=== PATIENT | male | born 1965 | race Caucasian/White ===

== ENCOUNTER 2020-05-02 08:36 | Outpatient (CLI) | payer BC, SELFPAY ==
--- NOTE | 2020-05-02 11:00 | NEURO_ITS ---
Patient Number: [id number] Impression: # Complains of numbness of hands. # Bilateral Carpal Tunnel Syndrome, right more than left. # Subtle left ulnar neuropathy across the elbow. # Normal needle/EMG exam. Nerve Conduction Studies Anti Sensory Summary Table Stim Site NR Peak (ms) P-T Amp (?V) Site1 Site2 Delta-P (ms) Dist (cm) Renny (m/s) Left Median Anti Sensory (2-3nd Digit) Wrist 5.1 19.5 Wrist 2-3nd Digit 5.1 14.0 27 Wrist 5.1 14.4 Wrist 2-3nd Digit 5.1 14.0 27 Right Median Anti Sensory (2-3nd Digit) Wrist 5.1 10.9 Wrist 2-3nd Digit 5.1 14.0 27 Wrist 6.9 46.8 Wrist 2-3nd Digit 5.1 14.0 27 Left Radial Anti Sensory (Base 1st Digit) Wrist 1.8 21.9 Wrist Base 1st Digit 1.8 0.0 Right Radial Anti Sensory (Base 1st Digit) Wrist 2.0 12.7 Wrist Base 1st Digit 2.0 0.0 Left Ulnar Anti Sensory (5th Digit) Wrist 2.7 59.3 Wrist 5th Digit 2.7 14.0 52 Right Ulnar Anti Sensory (5th Digit) Wrist 2.8 12.0 Wrist 5th Digit 2.8 14.0 50 Motor Summary Table Stim Site NR Onset (ms) O-P Amp (mV) Site1 Site2 Delta-0 (ms) Dist (cm) Renny (m/s) Left Median Motor (Abd Poll Brev) Wrist 4.4 1.7 Elbow Wrist 5.3 30.0 57 Elbow 9.7 5.0 Right Median Motor (Abd Poll Brev) Wrist 5.3 1.8 Elbow Wrist 5.2 30.0 58 Elbow 10.5 1.8 Left Ulnar Motor (Abd Dig Minimi) Wrist 3.0 7.3 A Elbow Wrist 5.6 29.0 52 A Elbow 8.6 5.6 B Elbow Wrist 4.2 23.0 55 B Elbow 7.2 5.6 Right Ulnar Motor (Abd Dig Minimi) Wrist 2.8 6.4 A Elbow Wrist 5.5 31.0 56 A Elbow 8.3 5.5 F Wave Studies NR F-Lat (ms) L-R F-Lat (ms) Left Median (Mrkrs) (Abd Poll Brev) 30.73 0.53 Right Median (Mrkrs) (Abd Poll Brev) 31.26 0.53 Left Ulnar (Mrkrs) (Abd Dig Min) 29.89 0.15 Right Ulnar (Mrkrs) (Abd Dig Min) 29.74 0.15 EMG Side Muscle Nerve Root Ins Act Fibs Amp Dur Recrt Comment Right 1stDorInt Ulnar C8-T1 Nml Nml Nml Nml Nml Right Ext Indicis Radial (Post Int) C7-8 Nml Nml Nml Nml Nml Right Ext Digitorum Radial (Post Int) C7-8 Nml Nml Nml Nml Nml Right BrachioRad Radial C5-6 Nml Nml Nml Nml Nml Right PronatorTeres Median C6-7 Nml Nml Nml Nml Nml Right Abd Poll Brev Median C8-T1 Nml Nml Nml Nml Nml Left 1stDorInt Ulnar C8-T1 Nml Nml Nml Nml Nml Left Ext Indicis Radial (Post Int) C7-8 Nml Nml Nml Nml Nml Left Ext Digitorum Radial (Post Int) C7-8 Nml Nml Nml Nml Nml Left BrachioRad Radial C5-6 Nml Nml Nml Nml Nml Left PronatorTeres Median C6-7 Nml Nml Nml Nml Nml Left Abd Poll Brev Median C8-T1 Nml Nml Nml Nml Nml Right ABD Dig Min Ulnar C8-T1 Nml Nml Nml Nml Nml Left ABD Dig Min Ulnar C8-T1 Nml Nml Nml Nml Nml MTDD
== END 2020-05-02 08:37 | disposition home or self-care (01) ==
PROVIDERS: PCP Internal Medicine; Visit Provider Internal Medicine
DX: R20.2 Paresthesia of skin (principal); G56.03 Carpal tunnel syndrome, bilateral upper limbs; G56.22 Lesion of ulnar nerve, left upper limb
CPT/HCPCS: 95886; 95911

== ENCOUNTER → 2021-02-18 16:27 | Outpatient (CLI) | payer BC, SELFPAY ==
--- NOTE | ~2021-02-18 | MR_ITS ---
EXAMINATION: MR knee RT wo con DATE: 02/18/2021 18:36 INDICATION: Right knee pain. TECHNIQUE: Magnetic resonance imaging (MRI) of the right knee was performed without intravenous contr ast. Sequences included axial PD-weighted FS FSE, coronal PD-weighted FSE and PD-weighted FS FSE, sag ittal PD-weighted FSE, and sagittal T2-weighted FS FSE. COMPARISON: None. FINDINGS: Medial compartment: There is a complex tear body and posterior horn of medial meniscus. There is full-thickness cartilage loss of tibial condyle involving the anterior, central, and medial articular surface with cortical r emodeling and mild subchondral edema-like marrow signal intensity. There is full-thickness cartilage loss of femoral condyle involving the central and medial articular surface with cortical remodeling a nd mild subchondral edema-like marrow signal intensity. Osteophytes are noted. Lateral compartment: Lateral meniscus is normal. There is cartilage surface irregularity of tibial condyle and femoral con dyle. Osteophytes are noted. Patellofemoral compartment: There is full-thickness cartilage loss of patellar medial facet and median ridge. There is deep parti al-thickness cartilage loss of patellar lateral facet with mild subchondral edema-like marrow signal intensity. There is full-thickness cartilage loss of central and medial trochlea with mild subchondra l edema-like marrow signal intensity. Osteophytes are noted. Ligaments and tendons: The anterior and posterior cruciate ligaments are normal. There are changes of prior sprains of media l collateral ligament and fibular collateral ligament characterized by thickening and increased signa l intensity proximally. There is mild patellar tendinopathy. Fluid: There is a moderate-sized knee joint effusion. There is mild prepatellar and superficial infrapatella r bursitis. IMPRESSION: 1. Severe chondrosis of medial and patellofemoral compartments and mild chondrosis of lateral compart ment. 2. Tear of medial meniscus. 3. Moderate-sized knee joint effusion. Reviewed, dictated and finalized at location A. IMPRESSION: 1. Severe chondrosis of medial and patellofemoral compartments and mild chondro sis of lateral compartment. 2. Tear of medial meniscus. 3. Moderate-sized knee joint effusion.
== END ==
PROVIDERS: PCP Internal Medicine; Visit Provider Orthopaedic Surgery
DX: M17.11 Unilateral primary osteoarthritis, right knee (principal); S83.241A Other tear of medial meniscus, current injury, right knee, initial encounter; X58.XXXA Exposure to other specified factors, initial encounter; M25.461 Effusion, right knee
CPT/HCPCS: 73721

== ENCOUNTER 2021-04-09 13:42 | Outpatient (CLI) | payer BC, SELFPAY ==
--- NOTE | 2021-04-09 14:44 | ECG_ITS ---
Measurements Intervals [place] Rate: 61 P: 19 UT: 153 QRS: -27 QRSD: 110 T: 91 QT: 404 QTc: 410 Interpretive Statements SINUS RHYTHM POOR R WAVE PROGRESSION, ANTERIOR LEADS BORDERLINE ST-T WAVE ABNORMALITY- HIGH LATERAL LEADS BASELINE ARTIFACT- I, III, AVR, AVL, AVF BORDERLINE ECG Electronically Signed On 04-09-2021 15:53:38 CDT by Damian Martinez D.O.
[2021-04-09 15:20] LABS: Basophils Percent Auto 0.5 % (0.2-1.2); Eosinophils Absolute Auto 0.2 K/mm3 (0-0.3); Eosinophils Percent Auto 3.1 % (0-4.4); Hematocrit 44.8 % (42.0-52.0); Hemoglobin 14.9 g/dL (14.0-18.0); Immature Granulocyte Absolute 0.03 K/mm3 (0.00-0.031); Immature Granulocyte Percent A 0.5 % (0-0.5); Lymphocytes Absolute Auto 1.26 K/mm3 (0.9-3.2); Lymphocytes Percent Auto 19.7 % (18.3-44.2); Mean Corpuscular HGB Conc 33.3 g/dl (32-36); Mean Corpuscular Hemoglobin 30.8 pg (26-34); Mean Corpuscular Volume 92.8 fl (80-100); Mean Platelet Volume 10.7 fl (7.4-10.4); Monocytes Absolute Auto 0.4 K/mm3 (0.1-0.6); Monocytes Percent Auto 5.8 % (2.6-8.5); Neutrophils Absolute Auto 4.5 K/mm3 (1.3-6.7); Neutrophils Percent Auto 70.4 % (45.5-73.1); Platelet Count Result 222 k/mm3 (150-375); Red Blood Count 4.83 M/mm3 (4.6-6.20); Red Cell Distribution Width 13.4 % (11.5-14.5); White Blood Count 6.4 K/mm3 (4.5-10.0)
[2021-04-09 15:30] LABS: Albumin Level 4.8 g/dL (3.5-5.1); Anion Gap 12 mmol/L (8-16); Blood Urea Nitrogen 20 mg/dL (9-20); Calcium 9.7 mg/dL (8.4-10.2); Carbon Dioxide 25 mmol/L (22-30); Chloride 107 mmol/L (98-107); Estimated Glomerular Filt Rate > 60; Glucose 124 mg/dL (75-110); Potassium 4.4 mmol/L (3.4-5.0); Sodium 144 mmol/L (137-145)
[2021-04-09 17:19] LABS: Hemoglobin A1C 5.5 % (<5.7)
[2021-04-10 16:18] LABS: Urine Cotinine NEGATIVE
== END 2021-04-09 13:43 | disposition home or self-care (01) ==
LOC: ANHSURGERY 13:45
PROVIDERS: PCP Internal Medicine; Visit Provider Orthopaedic Surgery
DX: Z01.818 Encounter for other preprocedural examination (principal); M17.11 Unilateral primary osteoarthritis, right knee
CPT/HCPCS: 80048; 80307; 82040; 83036; 85025; 87070; 87077; 87186; 93005

== ENCOUNTER → 2021-04-26 00:10 | Outpatient (CLI) | payer BC, SELFPAY ==
[2021-04-26 19:26] LABS: SARS-CoV-2 RNA PCR Negative
== END ==
PROVIDERS: PCP Internal Medicine; Visit Provider Orthopaedic Surgery
DX: Z01.812 Encounter for preprocedural laboratory examination (principal); Z20.822 Contact with and (suspected) exposure to COVID-19
CPT/HCPCS: C9803; U0003; U0005

== ENCOUNTER 2021-04-30 01:18 | Day surgery (SDC) | payer BC, SELFPAY ==
[2021-04-09 13:53] VITALS: BMI 32.2
[2021-04-09 14:43] VITALS: BP 147/80; PULSE 65; RESP 16; TEMP 37.2; O2SAT 99
--- NOTE | 2021-04-28 13:59 | PM.IMHP ---
H&P: HPI History of Present Illness Date/Time: 04/28/21 13:59 55-year-old male patient of Dr. Morales who presents today for a right total knee arthroplasty. He has been having pain in this knee for years. He has had cortisone injections in the past, last 1 being well over 3 months ago. He has been on diclofenac 75 mg b.i.d.. Neither of which have given him satisfactory improvement of his symptoms. He has smqu-ti-[id number] arthritis in the medial compartment of the knee. He was evaluated for possible partial knee replacement unfortunately has significant patellofemoral changes and therefore not be a good candidate for partial knee replacement. He is miserable and tired of the pain on daily basis and feels he is ready proceed with total knee arthroplasty on the right knee <OLI Samuels - Last Filed: 04/28/21 14:07> Chief Complaint: Right knee DJD <LOI Samuels - Last Filed: 04/28/21 14:07> Review of Systems Review of Systems: All systems reviewed & are unremarkable except as noted in HPI and below <LOI Samuels - Last Filed: 04/28/21 14:07> [facility] Past Medical History Medical History: Medical History (Updated 04/29/21 @ 13:53 by Dragan Tang MD) Arthritis Chronic GERD HTN (hypertension) Hypercholesterolemia Obesity <LOI Samuels - Last Filed: 04/28/21 14:07> Social History Social History: Social History Smoking status: Never smoker Additional smoking assessment comments: DENIES ANY FORM OF TOBACCO USE Alcohol intake: current Drinks per week: 18 Living arrangements: other Spiritual care concerns: No <LOI Samuels - Last Filed: 04/28/21 14:07> Meds Home Medications and Allergies Home medications: Home Medications Medication Instructions Recorded Confirmed Type atorvastatin 20 mg PO HS 04/09/21 04/30/21 History biotin 10 mg PO DAILY 04/09/21 04/30/21 History cholecalciferol (vitamin D3) 50 mcg PO DAILY 04/09/21 04/30/21 History diclofenac sodium 75 mg PO BID 04/09/21 04/30/21 History ginkgo biloba [Ginkgo] 60 mg PO DAILY 04/09/21 04/30/21 History multivitamin,nb-ipxw-ebjtcoay 1 tablet PO DAILY 04/09/21 04/30/21 History [Complete Multivitamin] nifedipine 30 mg PO QAM 04/09/21 04/30/21 History pantoprazole 40 mg PO QAM 04/09/21 04/30/21 History turmeric 400 mg PO DAILY 04/09/21 04/30/21 History <LOI Samuels - Last Filed: 04/28/21 14:07> Allergies/Adverse reactions: Allergies Allergy/AdvReac Type Severity Reaction Status Date / Time No Known Allergies Allergy Mild Verified 04/30/21 10:13 <LOI Samuels - Last Filed: 04/28/21 14:07> Exam Narrative: Exam Narrative: 55-year-old male alert pleasant. He is 5 ft 11 and 230 lb. His right knee has mild effusion. Range of motion is from 15-120 degrees. Negative Merari's. Mild medial pseudolaxity. He has no swelling in the right lower extremity. 2+ dorsalis pedis posterior tibial artery pulse. No numbness to the right lower extremity. Hip range of motion is full without discomfort negative Stinchfield maneuver. Skin is normal around the right knee and right lower extremity. <LOI Samuels - Last Filed: 04/28/21 14:07> Resp: Auscultation: clear to auscultation bilaterally <LOI Samuels - Last Filed: 04/28/21 14:07> Cardio: Rate: regular rate <LOI Samuels - Last Filed: 04/28/21 14:07> Rhythm: regular rhythm <LOI Samuels - Last Filed: 04/28/21 14:07> Assessment and Plan Additional Plan 55-year-old male who has severe medial compartment and moderately severe patellofemoral arthritis in right knee. Again given his patellofemoral changes he is not a good candidate for an Perkins partial knee replacement. Patient is fairly miserable and like to proceed with total knee arthroplasty. He did have his left knee replaced in the past in [place]. He developed a lot of stiffness po
--- NOTE | 2021-04-29 13:52 | WPDANESEPPF ---
Anes - Initial Pre Proc Eval Procedure: Operation Date: 04/30/21 12:00 Proposed Procedures p Right Total Knee Arthroplasty - Norberto Walden MD Date/Time: 04/29/21 13:52 Surgeon: Norberto Walden MD Pre Op Diagnosis: OA right knee Patient Data Age: 55 Gender: M Height: 1.8 m Weight: 104.9 kg Last Vital Signs Temp 37.2 C 04/09/21 14:43 Pulse 65 04/09/21 14:43 Resp 16 04/09/21 14:43 BP 147/80 H 04/09/21 14:43 Pulse Ox 99 04/09/21 14:43 Allergies Allergy/AdvReac Type Severity Reaction Status Date / Time No Known Allergies Allergy Mild Verified 04/30/21 10:13 Home Medications Medication Instructions Recorded Confirmed Type atorvastatin 20 mg PO HS 04/09/21 04/30/21 History biotin 10 mg PO DAILY 04/09/21 04/30/21 History cholecalciferol (vitamin D3) 50 mcg PO DAILY 04/09/21 04/30/21 History diclofenac sodium 75 mg PO BID 04/09/21 04/30/21 History ginkgo biloba [Ginkgo] 60 mg PO DAILY 04/09/21 04/30/21 History multivitamin,ca-clod-bpojzaug 1 tablet PO DAILY 04/09/21 04/30/21 History [Complete Multivitamin] nifedipine 30 mg PO QAM 04/09/21 04/30/21 History pantoprazole 40 mg PO QAM 04/09/21 04/30/21 History turmeric 400 mg PO DAILY 04/09/21 04/30/21 History Patient hx anesthesia problems: none Family hx anesthesia problems: none PMFSH Past Medical History Medical History (Updated 04/29/21 @ 13:53 by Dragan Tang MD) Arthritis Chronic GERD HTN (hypertension) Hypercholesterolemia Obesity Social History Social History Smoking status: Never smoker Additional smoking assessment comments: DENIES ANY FORM OF TOBACCO USE Alcohol intake: current Drinks per week: 18 Living arrangements: other Spiritual care concerns: No Anes - Eval Final PreProcedure Day of Procedure 04/29/21 13:52 Patient weight: obese Heart: regular rate and rhythm Lungs: clear to auscultation and normal air movement Airway: Mallampati scale class II Neurological: alert and oriented Last oral intake: >/= 8 hours ASA classification: III Emergent: no Anesthetic plan: proceed Anesthesia type and monitoring: general LMA Informed Consent: The patient's anesthetic plan and its attendant risks and benefits were discussed with the patient/family/POA. Questions were solicited and answers provided to the satisfaction of the patient/family/POA.
[2021-04-30] VITALS (18 sets, daily range): BP systolic 139–183; BP diastolic 67–84; PULSE 50–82; RESP 12–18; TEMP 36.2–37.2; O2SAT 94–100
--- NOTE | ~2021-04-30 | XR_ITS ---
EXAMINATION: XR knee RT 2V DATE: 04/30/2021 16:29 CDT INDICATION: Right total knee arthroplasty TECHNIQUE: 2 views right knee FINDINGS: There is a right total knee arthroplasty in expected position. Subcutaneous gas with fluid and air in the joint are consistent with recent surgery. No evidence of periprosthetic fracture. IMPRESSION: 1. Recent right total knee arthroplasty. Reviewed, dictated and finalized at location B.
[2021-04-30] MEDS: LACTATED RINGERS 1,000 ML 30 ML IV CONT ×2 (10:29→16:26)
[2021-04-30] MEDS: TRANEXAMIC ACID 1,000MG/ISO100 1,000 MG/100 ML BAG 200 MG IVPB (10:30)
[2021-04-30] MEDS: ACETAMINOPHEN 500 MG TABLET 1000 MG PO (10:30)
--- NOTE | 2021-04-30 11:53 | WPDHPUPDATE1 ---
History and Physical Update Update Date/Time: 04/30/21 11:53 History and Physical has been reviewed, including an updated exam of the patient. There are NO changes in the patient's condition. Risks, benefits, and alternatives have been discussed and questions answered. Patient agrees to proceed with procedure.
[2021-04-30] MEDS: ceFAZolin 2 GM/D5W 50 ML 2 GM/50 ML BAG IVPB (12:04)
[2021-04-30] MEDS: ceFAZolin SODIUM 1 GM VIAL 3 GM IRRIGATION (12:42)
[2021-04-30] MEDS: ceFAZolin SODIUM 1 GM VIAL 2 GM IV PUSH (15:10)
[2021-04-30] MEDS: ceFAZolin SODIUM 1 GM VIAL IRRIGATION (15:30)
--- NOTE | 2021-04-30 16:17 | W.PM.PROC2 ---
Procedure Note - Detailed Date of Procedure 04/30/21 Pre-op Diagnosis OA right knee Post-op Diagnosis same Procedure Performed Right total knee arthroplasty Surgeon Norberto Walden MD [facility] Anesthesia general Indications Severe osteoarthritis and stiffness and pain Findings Same Description of Procedure Patient was brought to the operating room and general anesthesia was administered. The right knee was prepped draped usual fashion. He received 2 g of Ancef and tranexamic acid preoperatively. During the time-out we realized that for some reason the patient had not received the ordered vancomycin and this was ordered during the case and administered during the procedure. Limb was exsanguinated tourniquet elevated to 250 mmHg. An 8 in longitudinal incision was made. Under anesthesia he had range of motion limited from 15-120 degrees. His knee was very stiff and tight. It standard arthrotomy was utilized. Infrapatellar and suprapatellar fat pads were excised. The suprapatellar pouch was released to avoid tethering the quadriceps in deep flexion. The patella was arthritic. It was eburnated along its medial aspect and scalloped in the center at the ridge. Composite thickness was 22 mm. The patella was cut to 15 mm. Bone quality was excellent. A protective cap was applied. A guide keren was inserted down the femoral canal after aspiration canal contents using the 5 degree valgus cutting bushing 10 mm of bone removed the distal femur. This removed equal amounts medially and laterally. He had a fair amount of wear medially. Next the tibia was cut and tried to accomplish a skin cut on the medial tibial plateau and our 1st attempt was a few mm shy of getting to the base of the where spot on the medial tibial plateau and with this was recut removing another 2 and half 3 mm which brought his just flush with the defect posteromedially. Bone quality was again excellent. Meniscal remnants were excised and the PCL released. Some of the anteromedial tibial osteophyte was removed as was osteophyte from the medial femoral condyle. In extension the knee was a bit tighter medially than laterally. It would not yet except a 10 mm spacer block to the tightness medially. In flexion we had a flexion gap of a tight 8 medially and a tight 12 laterally. Whitesides line was drawn in the trochlea and the femoral Sizer was set to 5? of external rotation which aligned with Whitesides line quite well. Posterior referencing pin holes were placed and the cutting block for the size 70 femur was applied. AP and chamfer cuts were made and the 70 fit line to line anterior to posterior and medial to lateral. We tried to insert a 10 mm CR insert at 90? of flexion and we were unable due to tightness. At 30? weakness inserted with the knee lacked 10? of extension therefore an additional 2 mm of bone removed from the tibial plateau at this time. We made the tibial cut and about 1 degree of varus to try and improve stability as he had significant tibia vera preoperatively and on standing x-ray 10? of anatomic axis varus. With this tip done we sized the tibia to a size 75 which fit line to line anteromedially and to posterior laterally and with the component proper rotation referenced off anterior surface of the tibia medial 1/3 of tibial tubercle and the 2nd ray of the foot. This was punched and we trialed with a 10 insert. Before trialing we removed additional posteromedial tibial osteophyte. On trialing which we did now with the tourniquet down which we put down at 90?, the knee had excellent stability at 90?. With a Galindo elevator I could distract the medial side 1 mm in lateral situ mm and gravity flexion was to 130 and passive 140 without liftoff. In extension the knee lacked about 3? extension with a little bit of play medially. The lateral side opened up 2 or 3 mm to varus stress in this position. We had removed some of the bulky posterior medial osteophyte previo
[2021-04-30] MEDS: fentaNYL CITRATE INJ (*CRX) 100 MCG/2 ML VIAL 25 MCG IV PUSH ×4 (17:04→17:24)
--- NOTE | 2021-04-30 18:33 | ADMGEN ---
This patient, Jasper Martinez, was admitted to 2 Medical Room 242-01. Patient/family oriented to hospital policies and general routines including ID bracelet, bed and alarms, visiting hours, pain management, procedures, bathroom and other care routines, personal items, smoking policy, room service/diet, and visiting hours. Information on how to activate the Rapid Response Team has been discussed. Patient/Family are encouraged to report perceived risks to care and to ask questions if they do not understand what they are told or what they should do.
[2021-04-30] MEDS: oxyCODONE HCL (*CRX) 5 MG TAB IR PO ×2 (18:40→21:08)
[2021-04-30] MEDS: oxyCODONE HCL (*CRX) 10 MG TAB SR 12HR PO (21:07)
[2021-04-30] MEDS: SENNA/DOCUSATE SODIUM TABLET 2 TAB PO (21:08)
[2021-04-30] MEDS: ATORVASTATIN 20 MG TABLET PO (21:08)
[2021-05-01] MEDS: oxyCODONE HCL (*CRX) 5 MG TAB IR PO ×4 (00:44→12:06)
[2021-05-01] MEDS: ACETAMINOPHEN 500 MG TABLET 1000 MG PO ×3 (00:45→11:10)
[2021-05-01 03:45] VITALS: BP 155/56; PULSE 63; RESP 20; TEMP 37.2; O2SAT 98
[2021-05-01 05:42] LABS: Basophils Percent Auto 0.1 % (0.2-1.2); Hemoglobin 12.4 g/dL (14.0-18.0); Immature Granulocyte Absolute 0.06 K/mm3 (0.00-0.031); Immature Granulocyte Percent A 0.5 % (0-0.5); Lymphocytes Absolute Auto 0.51 K/mm3 (0.9-3.2); Lymphocytes Percent Auto 4.2 % (18.3-44.2); Mean Corpuscular HGB Conc 32.6 g/dl (32-36); Mean Corpuscular Hemoglobin 30.5 pg (26-34); Mean Corpuscular Volume 93.6 fl (80-100); Mean Platelet Volume 10.6 fl (7.4-10.4); Monocytes Absolute Auto 0.8 K/mm3 (0.1-0.6); Monocytes Percent Auto 6.5 % (2.6-8.5); Neutrophils Absolute Auto 10.7 K/mm3 (1.3-6.7); Neutrophils Percent Auto 88.7 % (45.5-73.1); Platelet Count Result 214 k/mm3 (150-375); Red Blood Count 4.06 M/mm3 (4.6-6.20); Red Cell Distribution Width 13.6 % (11.5-14.5); White Blood Count 12.1 K/mm3 (4.5-10.0)
[2021-05-01 05:46] LABS: Anion Gap 8 mmol/L (8-16); Blood Urea Nitrogen 19 mg/dL (9-20); Calcium 8.9 mg/dL (8.4-10.2); Carbon Dioxide 25 mmol/L (22-30); Chloride 105 mmol/L (98-107); Estimated CRCL calculation 87 ml/min; Estimated Glomerular Filt Rate > 60; Glucose 142 mg/dL (75-110); Potassium 4.1 mmol/L (3.4-5.0); Sodium 138 mmol/L (137-145)
--- NOTE | 2021-05-01 07:02 | PM.PNORT ---
Subjective Subjective Date/Time Seen: 05/01/21 07:POD 1 alert avss BP- running a little high, pain overall is well controlled, dressing is dry, NVI. plan to have pt work with PT today then home this afternoon, labs-noted Objective Data Vital Signs Vital Signs: Vital Signs - 24 hr 04/30/21 11:17 04/30/21 16:26 04/30/21 16:35 Temperature 36.2 C L 37.2 C Pulse Rate 50 L 82 78 Respiratory Rate 16 12 12 Blood Pressure 183/73 H 146/84 H 139/69 Pulse Oximetry 97 100 100 04/30/21 16:45 04/30/21 16:55 04/30/21 16:58 Temperature Pulse Rate 78 71 59 L Respiratory Rate 16 16 12 Blood Pressure 147/79 H 161/74 H 163/78 H Pulse Oximetry 100 94 94 04/30/21 17:05 04/30/21 17:15 04/30/21 17:19 Temperature Pulse Rate 55 L 59 L 59 L Respiratory Rate 12 16 16 Blood Pressure 172/70 H 158/71 H 169/75 H Pulse Oximetry 94 97 98 04/30/21 17:30 04/30/21 17:45 04/30/21 18:00 Temperature 36.4 C Pulse Rate 73 69 68 Respiratory Rate 14 14 16 Blood Pressure 156/82 H 173/74 H 160/70 H Pulse Oximetry 97 97 96 04/30/21 18:07 04/30/21 18:15 04/30/21 18:45 Temperature 36.4 C 36.6 C Pulse Rate 55 L 57 L Respiratory Rate 16 16 Blood Pressure 149/67 H 165/70 H Pulse Oximetry 96 97 96 04/30/21 19:45 04/30/21 22:11 Temperature 36.3 C L Pulse Rate 76 Respiratory Rate 18 Blood Pressure 173/83 H Pulse Oximetry 97 94 Intake/Output Intake/Output: Intake & Output 04/28/21 04/29/21 04/30/21 05/01/21 23:59 23:59 23:59 23:59 Intake Total 1300 300 Output Total 200 Balance 1300 100 Meds/Results Medications: Active Medications Generic Name Dose Route Start Last Admin Trade Name Freq PRN Reason Stop Dose Admin Acetaminophen 1,000 mg 05/01/21 00:00 05/01/21 05:30 Acetaminophen 500 Mg Tablet PO 1,000 mg Q6HR IMAN Administration Apixaban 2.5 mg 05/01/21 09:00 Apixaban 2.5 Mg Tablet PO Q12HR [facility] Atorvastatin Calcium 20 mg 04/30/21 21:00 04/30/21 21:08 Atorvastatin 20 Mg Tablet PO 20 mg HS IMAN Administration Celecoxib 200 mg 05/01/21 08:00 Celecoxib 200 Mg Capsule PO DAILY@0800 [facility] Cephalexin HCl 500 mg 05/01/21 18:00 Cephalexin 500 Mg Capsule PO 05/15/21 18:01 Q6HR IMAN Cefazolin Sodium 1 gm in 50 mls @ 100 mls/hr 04/30/21 20:00 05/01/21 05:00 Ancef 1 Gm/D5w 50 Ml Pm IVPB 05/01/21 12:29 Infused Q8H [facility] Infusion Vancomycin HCl 1,000 mg in 250 mls @ 250 mls/hr 05/01/21 01:00 05/01/21 01:45 Vancomycin 1,000 Mg/D5w 250 Ml IVPB 05/01/21 13:59 Infused Q12H [facility] Infusion Morphine Sulfate 2 mg 04/30/21 17:50 Morphine Sulfate (*Crx) 2 Mg/Ml Inj IV PUSH Q1H PRN Pain Rated 7-10 Multivitamins/Calcium 1 tablet 05/01/21 09:00 Therapeutic Multivitamins/Minerals Tab (*Bkc) PO DAILY [facility] Naloxone HCl 0.1 mg 04/30/21 17:50 Naloxone Hcl 0.4 Mg/Ml Vial IV PUSH Q2M PRN Opiate Reversal Nifedipine 30 mg 05/01/21 09:00 Nifedipine 30 Mg Tab.Er.24 PO QAM [facility] Oxycodone HCl 10 mg 04/30/21 21:00 04/30/21 21:07 Oxycodone Hcl (*Crx) 10 Mg Tab Sr 12hr PO 10 mg Q12HR IMAN Administration Oxycodone HCl 5 mg 04/30/21 21:00 05/01/21 05:30 Oxycodone Hcl (*Crx) 5 Mg Tab Ir PO 5 mg Q4HR IMAN Administration Oxycodone HCl 5 mg 04/30/21 17:50 04/30/21 18:40 Oxycodone Hcl (*Crx) 5 Mg Tab Ir PO 5 mg Q4H PRN Administration Pain Rated 7-10 Pantoprazole Sodium 40 mg 05/01/21 09:00 Pantoprazole 40 Mg Tablet PO QAM [facility] Polyethylene Glycol 17 gm 05/01/21 09:00 Polyethylene Glycol 3350 17 Gm Powd.Pack PO QAM [facility] Senna/Docusate Sodium 2 tab 04/30/21 21:00 04/30/21 21:08 Senna/Docusate Sodium Tablet PO 2 tab BID [facility] Administration Vitamin D 2,000 units 05/01/21 09:00 Cholecalciferol 1,000 Units Tablet PO DAILY [facility] Radiology Results: ITS Impressions Knee X-Ray 04/30/21 16:29 IMPRESSION: 1. Recent right total knee
--- NOTE | 2021-05-01 07:04 | PM.DS ---
DS: Admitting Diagnosis Admitting Diagnosis Admitting Diagnosis: right knee DJD DS: Summary Hospital Course Hospital Course: stable Time Spent with Patient Time attestation: Total time spent providing and/or coordinating discharge services: A 55-year-old male underwent right total knee arthroplasty 04/30/2021. He underwent the procedure without complications, postoperatively he has been afebrile vital signs stable and neurovascular intact, his wound is dry. He is weight-bearing as tolerated. He is on schedule Tylenol as well as oxycodone 5 mg for pain control. He is also on Celebrex once a day. He is on Eliquis for DVT prophylaxis. When he is discharged to home he will be on 2 weeks of Keflex due to his nasal swab growing oxacillin sensitive Staph aureus. Patient will go home on regular diet. He was advised to keep the leg elevated at home but swelling but do his exercises on a very regular basis. His outpatient therapy scheduled start on Wednesday. Also given the patient a heel lift to wear on the opposite side he has a significant flexion contracture of his left knee. Patient also with Senokot and MiraLax for constipation. Patient was advised any questions or concerns once he goes home should call the office otherwise will see him at his appointment date. Patient has been stable throughout his care at the hospital. DS: Data Data Completed and Pending Labs on day of discharge: Labs from last 24 hours 05/01/21 05/01/21 04/30/21 05:13 05:13 10:34 WBC 12.1 H RBC 4.06 L Hgb 12.4 L Hct 38.0 L MCV 93.6 MCH 30.5 MCHC 32.6 RDW 13.6 Plt Count 214 MPV 10.6 H Immature Gran % (Auto) 0.5 Neut % (Auto) 88.7 H Lymph % (Auto) 4.2 L [place] % (Auto) 6.5 Eos % (Auto) 0.0 Baso % (Auto) 0.1 L Lymph # (Auto) 0.51 L [place] # (Auto) 0.8 H Eos # (Auto) 0.0 Baso # (Auto) 0.0 Abs Immat Gran (auto) 0.06 H Absolute Neuts (auto) 10.7 H Absolute Nucleated RBC 0.0 Nucleated RBC % 0.0 Sodium 138 Potassium 4.1 Chloride 105 Carbon Dioxide 25 Anion Gap 8 BUN 19 Creatinine 1.00 Estim Creat Clear Calc 87 Estimated GFR > 60 Glucose 142 H Calcium 8.9 Blood Type O Positive Antibody Screen Negative Discharge Plan Discharge Patient Disposition: Home, Self-Care Patient Instructions: Pain Management (DC), Joint Replacement Surgery (DC), Knee Replacement (DC) Discharge Medications: No Action nifedipine 30 mg tablet extended release 24hr 30 mg PO QAM RF: 0 atorvastatin 20 mg tablet 20 mg PO HS RF: 0 diclofenac sodium 75 mg tablet,delayed release (DR/EC) 75 mg PO BID RF: 0 pantoprazole 40 mg tablet,delayed release (DR/EC) 40 mg PO QAM RF: 0 biotin 10 mg Tablet 10 mg PO DAILY RF: 0 Ginkgo 60 mg Tablet 60 mg PO DAILY RF: 0 cholecalciferol (vitamin D3) 50 mcg (2,000 unit) Tablet 50 mcg PO DAILY RF: 0 turmeric 400 mg Capsule 400 mg PO DAILY RF: 0 Complete Multivitamin Tablet 1 tablet PO DAILY RF: 0
[2021-05-01] MEDS: SENNA/DOCUSATE SODIUM TABLET 2 TAB PO (08:33)
[2021-05-01] MEDS: polyethylene glycoL 3350 17 GM POWD.PACK PO (08:33)
[2021-05-01] MEDS: PANTOPRAZOLE 40 MG TABLET PO (08:33)
[2021-05-01] MEDS: APIXABAN 2.5 MG TABLET PO (08:33)
[2021-05-01] MEDS: THERAPEUTIC MULTIVITAMINS/MINERALS TAB (*BKC) 1 TABLET PO (08:33)
[2021-05-01] MEDS: NIFEdipine 30 MG TAB.ER.24 PO (08:33)
[2021-05-01] MEDS: CHOLECALCIFEROL 1,000 UNITS TABLET 2000 UNITS PO (08:33)
[2021-05-01] MEDS: CELECOXIB 200 MG CAPSULE PO (08:33)
[2021-05-01] MEDS: oxyCODONE HCL (*CRX) 10 MG TAB SR 12HR PO (08:36)
--- NOTE | 2021-05-01 08:47 | WPDANESPN ---
Anes - Prog Note Post-Op Date/Time: 05/01/21 08:47 Cardiovascular status: normal Respiratory status: normal Airway patency: baseline Mental status: baseline Post-Op hydration status: normal Vital Signs: Last Vital Signs Temp 37.2 C 05/01/21 03:45 Pulse 63 05/01/21 03:45 Resp 20 05/01/21 03:45 BP 155/56 H 05/01/21 03:45 Pulse Ox 98 05/01/21 03:45 Pain Score (VAS): 0/10. Patient resting in bed at time of assessment, appears comfortable. PCT at bedside. I/O: Intake & Output 04/30/21 05/01/21 05/01/21 23:59 07:59 15:59 Intake Total 750 600 Output Total 700 Balance 750 -100 Laboratory Tests 05/01/21 05:13 05/01/21 05:13 04/30/21 05/01/21 05/01/21 10:34 05:13 05:13 WBC 12.1 H RBC 4.06 L Hgb 12.4 L Hct 38.0 L MCV 93.6 MCH 30.5 MCHC 32.6 RDW 13.6 Plt Count 214 MPV 10.6 H Immature Gran % (Auto) 0.5 Neut % (Auto) 88.7 H Lymph % (Auto) 4.2 L [place] % (Auto) 6.5 Eos % (Auto) 0.0 Baso % (Auto) 0.1 L Lymph # (Auto) 0.51 L [place] # (Auto) 0.8 H Eos # (Auto) 0.0 Baso # (Auto) 0.0 Abs Immat Gran (auto) 0.06 H Absolute Neuts (auto) 10.7 H Absolute Nucleated RBC 0.0 Nucleated RBC % 0.0 Sodium 138 Potassium 4.1 Chloride 105 Carbon Dioxide 25 Anion Gap 8 BUN 19 Creatinine 1.00 Estim Creat Clear Calc 87 Estimated GFR > 60 Glucose 142 H Calcium 8.9 Blood Type O Positive Antibody Screen Negative Post-procedural complaints: none Patient Feedback: Patient satisfied with anesthetic care.
--- NOTE | 2021-05-01 09:51 | P.PNAN_ITS ---
Anes - Prog Note Post-Op Date/Time: 05/01/21 09:51 Cardiovascular status: normal Respiratory status: normal Airway patency: baseline Mental status: baseline Post-Op hydration status: normal Vital Signs: Last Vital Signs Temp 37.2 C 05/01/21 03:45 Pulse 63 05/01/21 03:45 Resp 20 05/01/21 03:45 BP 155/56 H 05/01/21 03:45 Pulse Ox 98 05/01/21 03:45 Pain Score (VAS): 0 I/O: Intake & Output 04/30/21 05/01/21 05/01/21 23:59 07:59 15:59 Intake Total 750 600 420 Output Total 700 Balance 750 -100 420 Laboratory Tests 05/01/21 05:13 05/01/21 05:13 04/30/21 05/01/21 05/01/21 10:34 05:13 05:13 WBC 12.1 H RBC 4.06 L Hgb 12.4 L Hct 38.0 L MCV 93.6 MCH 30.5 MCHC 32.6 RDW 13.6 Plt Count 214 MPV 10.6 H Immature Gran % (Auto) 0.5 Neut % (Auto) 88.7 H Lymph % (Auto) 4.2 L [place] % (Auto) 6.5 Eos % (Auto) 0.0 Baso % (Auto) 0.1 L Lymph # (Auto) 0.51 L [place] # (Auto) 0.8 H Eos # (Auto) 0.0 Baso # (Auto) 0.0 Abs Immat Gran (auto) 0.06 H Absolute Neuts (auto) 10.7 H Absolute Nucleated RBC 0.0 Nucleated RBC % 0.0 Sodium 138 Potassium 4.1 Chloride 105 Carbon Dioxide 25 Anion Gap 8 BUN 19 Creatinine 1.00 Estim Creat Clear Calc 87 Estimated GFR > 60 Glucose 142 H Calcium 8.9 Blood Type O Positive Antibody Screen Negative Post-procedural complaints: none Patient Feedback: Patient satisfied with anesthetic care.
[2021-05-01 10:05] VITALS: BP 136/55; PULSE 60; RESP 18; TEMP 36.7; O2SAT 98
== END 2021-05-01 14:22 | disposition home or self-care (01) ==
LOC: ANHSURGERY 09:48 → ANH2MED 17:52
PROVIDERS: PCP Internal Medicine; Visit Provider Orthopaedic Surgery
PROC: (CPT 27447; principal; 2021-04-30 12:00)
DX: M17.11 Unilateral primary osteoarthritis, right knee (principal); I10 Essential (primary) hypertension; E78.00 Pure hypercholesterolemia, unspecified; K21.9 Gastro-esophageal reflux disease without esophagitis; E66.9 Obesity, unspecified; Z68.31 Body mass index [BMI] 31.0-31.9, adult
CPT/HCPCS: 27447; 36415; 73560; 80048; 85025; 86850; 86900; 86901; 97110; 97116; 97161; 97165; A9270; C1713; C1776; J0171; J0690; J1100; J1170; J1885; J2250; J2270; J2405; J2704; J2710; J2795; J3010; J3370; J7120

== ENCOUNTER 2023-09-06 09:34 | Outpatient (CLI) | payer BC, SELFPAY ==
--- NOTE | ~2023-09-06 | XR_ITS ---
XR abdomen/kub 1V 09/06/2023 09:57 INDICATION: Gross hematuria TECHNIQUE: KUB COMPARISON: 06/29/2019 FINDINGS: Bowel gas pattern is normal. There is no evidence of free air, mass, organomegaly, ascites or obstruction. No abnormal calculi are seen. The bones appear intact. IMPRESSION: 1: No acute abdominal abnormality identified. Reviewed, dictated and finalized at location A.
== END 2023-09-06 09:35 | disposition home or self-care (01) ==
PROVIDERS: PCP Internal Medicine; Visit Provider Nurse Practitioner Adult Health
DX: R31.0 Gross hematuria (principal)
CPT/HCPCS: 74018

== ENCOUNTER 2024-01-25 13:49 | Outpatient (CLI) | payer BC, SELFPAY ==
--- NOTE | ~2024-01-25 | XR_ITS ---
XR abdomen/kub 1V DATE: 01/25/2024 14:05 INDICATION: Uric acid kidney stone. Stone removal in December. TECHNIQUE: 2 supine AP views COMPARISON: 09/06/2023 KUB FINDINGS: The psoas shadows are intact. No visceromegaly. No evidence of bowel obstruction. No urinar y tract calcifications are identified. There is degenerative spurring of the thoracic and lumbar spine. No suspicious osteolytic or osteobla stic lesions are noted. IMPRESSION: Nonspecific abdomen; no urinary tract calcifications are noted Reviewed, dictated and finalized at Location A. Reviewed, dictated and finalized at location L.
== END 2024-01-25 13:50 | disposition home or self-care (01) ==
LOC: ANHIMG 13:51
PROVIDERS: PCP Internal Medicine; Visit Provider Urology
DX: N20.0 Calculus of kidney (principal)
CPT/HCPCS: 74018

== ENCOUNTER 2025-01-01 06:31 | Outpatient (CLI) | payer BC, SELFPAY ==
--- NOTE | ~2025-01-01 | XR_ITS ---
Exam: Abdomen 1V HISTORY: URIC ACID KIDNEY STONE COMPARISON: 01/25/2024 TECHNIQUE: Supine images of the abdomen FINDINGS: Bowel gas pattern is non-obstructive. Fecal stasis within the colon. Air within the rectum. There is no free air or deep sulci. No pathologic calcifications are appreciated (secondary to overlying enteric contents). Lung bases are unremarkable. Bones and soft tissues are age-appropriate. IMPRESSION: Nonspecific, nonobstructive bowel gas pattern. Reviewed, dictated and finalized at location A. COMMUNICATIONS SPECIALIST
--- NOTE | ~2025-01-01 | CT_ITS ---
EXAMINATION: CT abdomen pelvis wo con DATE: 01/01/2025 06:55 INDICATION: Uric acid kidney stone. TECHNIQUE: Computed tomography (CT) of the abdomen and pelvis was performed without intravenous contr ast. Automated exposure control and iterative reconstruction technique were employed. The dose-length product was 572.57 mGy-cm. COMPARISON: None. FINDINGS: The visualized portions of the lung bases are clear without pneumonia or pleural effusion. The heart size is normal. No pericardial effusion. There is a small sliding hiatal hernia. The liver, gallbladder, spleen, pancreas, adrenal glands, and kidneys are normal. There is no urolithiasis. The prostate is moderately enlarged. There is diverticulosis of the colon without evidence of diverticul itis. There are no dilated loops of bowel. The appendix is normal. There is calcified atherosclerosis of the aorta and many of the other arteries. There is no ascites. There is prominent fat in left ing uinal canal that may be a hernia. There are no pathologically enlarged lymph nodes. There is mild tho racic and lumbar spondylosis. IMPRESSION: 1. No urolithiasis. Reviewed, dictated and finalized at location [] NG ASSOCIATE IMPRESSION: 1. No urolithiasis.
--- OUTSIDE RECORDS SUMMARY | 2025-01-01 06:38 | XMS_ITS | Continuity of Care Document ---
Author Organization [facility] Address [address] [place] [address] Phone Care Team Providers Care Fighting Vehicle Infantryman Name Role Phone Laurie Uribe Unavailable Unavailable Procedures Procedure Date Therapeutic Activities Neuromuscular Re-Ed Therapeutic Exercise Therapeutic Activities Neuromuscular Re-Ed Therapeutic Exercise Manual Therapy Doc neg elder mal no plan PT Evaluation Low Complexity Therapeutic Activities Neuromuscular Re-Ed Therapeutic Exercise Manual Therapy Advance Directives Directive Yes / No Effective Date File Name No Information Encounters Encounter Description Practice Location Reason(s) For Visit Diagnoses Date Provider Providers Copied on Encounter [facility], [address], [id number], tel:[phone] [place] No Information Philip Sullivan. . Referring Provider: Marty Castillo, [address], [place], [address]. tel:[phone] [facility], [address], [place], [place], [id number], tel:[phone] [place] No Information Philip Sullivan. . Referring Provider: Marty Castillo, [address], [place], [address]. tel:[phone] [facility], [address], [place], [place], [id number], tel:[phone] [place] No Information Philip Sullivan. . Referring Provider: Marty Castillo, [address], [place], [address]. tel:[phone] [facility], [address], [place], [place], [id number], tel:[phone] [place] No Information Philip Sullivan. . Referring Provider: Marty Castillo, [address], [place], [address]. tel:[phone] Family History Family Member Type Diagnosis Age At Onset No Information Payers Payer name Insurance type Covered alliance party ID Authornikki frey[facility] [id number] Social History Type Description Quantity Date Captured Comments Sex Male Smoking Status No Information Chief Complaint And Reason For Visit No Information Reason For Referral Reason For Referral No Information Plan Of Treatment Date Type Action Status Appointment Stewart [facility] ([facility] ) Left Side Sciatica BOOKED Appointment Stewart [facility] ([facility] ) Left Side Sciatica BOOKED Appointment Stewart [facility] ([facility] ) Left Side Sciatica BOOKED Appointment Stewart Martinez ([facility] ) Left Side Sciatica BOOKED Appointment Stewart Martinez ([facility] ) Left Side Sciatica BOOKED History Of Present Illness Encounter Date Complaint History Of Prese nt Illness No Information Functional Status Date Functional Assessmen t No Information Instructions Date Instruction Additional Infor mation No Information Assessments Type Assessment Date No Information Patient Care Teams Name Effective Dates (start - stop) Status Members No Information
--- OUTSIDE RECORDS SUMMARY | 2025-01-01 06:38 | XMS_ITS | Clinical Summary ---
Author Organization [facility] Address [address] [place] [address] Phone Care Team Providers Care Car Dropper Name Role Phone Unavailable Primary Care Provider Unavailabl e Social History Tobacco Use Types Packs/Day Years Used Date Smoking Tobacco: Never Assessed Sex and Gender Information Value Date Recorded Sex Assigned at Not on file Gender Identity Not on file Sexual Orientation Not on file Plan of Treatment Health Maintenance Due Date Last Done Comments Pneumococcal PPSV23 Highest Risk Adult (1 of 3 - PCV13) 1982 Influenza Vaccine (#1) 2024 3, 08/22/2022, 08/21/2015
--- OUTSIDE RECORDS SUMMARY | 2025-01-01 06:39 | XMS_ITS | Referral Summary ---
Author Organization [facility] Address [address] [place] [address] Care Team Providers Care Fur Joiner Name Role Phone Marty Morales MD Primary Care Provider [phone] Paulette Escalona MD Unavailable [phone] Allergies No known active allergies Medications NIFEdipine XL 30 mg 24 hr tablet Take 1 tablet (30 mg total) by mouth nightly Active pantoprazole DR (PROTONIX) 40 mg EC tablet Take 1 tablet (40 mg total) by mouth every morning 06/19/2020 Active atorvastatin (LIPITOR) 20 mg tablet Take 1 tablet (20 mg total) by mouth nightly Active Active Problems Problem Noted Date Diagnosed Date Renal stone 12/14/2023 Hypertension 12/03/2023 Hyperlipidemia 12/03/2023 GERD (gastroesophageal reflux disease) Kidney stone 12/03/2023 Osteoarthritis 12/03/2023 History of artificial joint 08/16/2015 Knee pain 05/13/2015 Social History Tobacco Use Types Packs/Day Years Used Date Smoking Tobacco: Never Tobacco Cessation:Counseling Given: Not Answered Alcohol Use Standard Drinks/Week Comments Yes 0 (1 standard drink = 0.6 oz pur e alcohol) AUDIT-C Answer Date Recorded Q1: How often do you have a drink containing alcohol? 4 or more times a week 12/14/2023 Q2: How many drinks containi ng alcohol do you have on a typical day when you are drinking? 1 or 2 02/06/202 4 Q3: How often do you have si x or more drinks on one occasion? Weekly 12/14/2023 Personal Safety Answer Date Recorded Have you ever been in or are you currently in a harmful physical or emotional relationship or is someone making you feel afraid or unsafe? Denies 12/15/2023 Sex and Gender Information Value Date Recorded Sex Assigned at Not on file Legal Sex Male 1:36 AM ADMINISTRATIVE INTERN Gender Identity Not on file Sexual Orientation Not on file Last Filed Vital Signs Vital Sign Reading Time Taken Comments Blood Pressure 134/91 12/15/2023 2:15 PM ADMINISTRATIVE INTERN Pulse 51 12/15/2023 2:15 PM ADMINISTRATIVE INTERN Temperature 36.6 C (97.9 F) 12/15/2023 12:27 PM ADMINISTRATIVE INTERN Respiratory Rate 20 12/15/2023 2:15 PM ADMINISTRATIVE INTERN Oxygen Saturation 94% 12/15/2023 2:15 PM ADMINISTRATIVE INTERN Inhaled Oxygen Concentration - - Weight 99.3 kg (219 lb) 12/15/2023 12:27 PM ADMINISTRATIVE INTERN Height 180.3 cm (5' 11 ) 12/15/2023 12:27 PM ADMINISTRATIVE INTERN Body Mass Index 30.54 12/15/2023 12:27 PM ADMINISTRATIVE INTERN Plan of Treatment Not on file Medical Devices Implanted Type Area Partner Manager Device Identifier Shelf Expiration Date Model / Serial / Lot [employer] Amplatz 8.5fr 26cm 6 Sideport Introducer Catheter String [id number] - [id number] Implanted:Qty: 1 on 12/15/2023 at [facility] [employer] 09/17/2026 [id number] / [id number] Insurance [employer] O[employer] Advance Directives For more information, please contact: [phone] * Full Code (Latest Code Status on File) Date Activated Date Inactivated Comments 12/14/2023 4:43 PM 12/15/2023 11:38 PM Care Teams Fur Joiner Relationship Specialty Start Date End Date Marty Morales MD PCP - General 05/07/19 Paulette Escalona MD [address] [place] [address] Consulting Physician Urology 12/15/23
--- OUTSIDE RECORDS SUMMARY | 2025-01-01 06:39 | XMS_ITS | Clinical Summary ---
Author Organization [facility] Address [address] [place] [address] Care Team Providers Care Executive Communications Manager Name Role Phone Marty Morales MD Primary Care Provider [phone] Source Comments [facility],non-owned Affiliates and Associated Physician Practices is amultiple site organization consisting of ambulatory clinics and hospital sitesin [place], [place], [place]. This disclosure is being madepursuant to the Care Everywhere program and may not contain all information available regarding this patient. Last updated 18.[facility] Allergies No known active allergies Medications * Be aware that medications may not be up to date on this document. Alwaysverify current medications with the patient. Medication Sig Dispensed Refills Start Date End Date Status FLEXERIL PO Take by mouth. Active CRESTOR PO Take by mouth. Active ETODOLAC PO Take by mouth. Active FISH OIL PO Take by mouth. Active diazepam (VALIUM) 5 MG tablet Take 1 Tab by mouth 3 times daily as needed for Anxiety. 90 0 06/09/2010 Active diclofenac sodium (VOLTAREN) 75 MG tablet Take 1 Tab by mouth 2 times daily. 60 4 06/09/2010 Active Active Problems Problem Noted Date Diagnosed Date Degeneration of cervical intervertebral disc 12/2009 Social History Tobacco Use Types Packs/Day Years Used Date Smoking Tobacco: Never Alcohol Use Standard Drinks/Week Comments No 0 (1 standard drink = 0.6 oz pur e alcohol) Sex and Gender Information Value Date Recorded Sex Assigned at Not on file Gender Identity Not on file Sexual Orientation Not on file Last Filed Vital Signs Vital Sign Reading Time Taken Comments Blood Pressure - - Pulse - - Temperature - - Respiratory Rate - - Oxygen Saturation - - Inhaled Oxygen Concentration - - Weight 88.5 kg (195 lb) 06/09/2010 2:40 PM CDT Height 180.3 cm (5' 11 ) 06/09/2010 2:40 PM CDT Body Mass Index 27.2 06/09/2010 2:40 PM CDT Plan of Treatment Health Maintenance Due Date Last Done Comments COLOGUARD (AGES 45-75) - COL ON CA SCREENING 1963 COLON MONITORING 1963 COLONOSCOPY - COLON CA SCREENING 1963 CT COLONOGRAPHY - COLON CA SCREENING 1963 Colorectal Cancer Screening 1963 FIT - COLON CA SCREENING 1963 FLEX SIG - COLON CA SCREENING 1963 HIV SCREENING 1978 HEPATITIS C SCREENING 09/03/1981 DTAP/TDAP/TD VACCINES (1 - Tdap) 1982 PNEUMOCOCCAL VACCINE 50+ (1 of 1 - PCV) 2013 ZOSTER VACCINE (1 of 2) 2013 COVID-19 VACCINE (1 - 2023-2 5 season) 2024 INFLUENZA VACCINE (#1) 2024 DEPRESSION SCREENING 11/08/2024 Respiratory Syncytial Virus (RSV) Vaccine Pt: or over 60 yrs (1 - 1-dose 75+ series) 2038 HEPATITIS B VACCINE Aged Out No longe r eligible based on patient's age to complete this topic HIB VACCINE Aged Out No longer eligi ble based on patient's age to complete this topic HPV VACCINE Aged Out No longer eligi ble based on patient's age to complete this topic MENINGOCOCCAL (Group B) VACCINE Aged Out No longer eligible based on patient's age to complete this topic MENINGOCOCCAL VACCINE Aged Out No emmanuel jahaira eligible based on patient's age to complete this topic PNEUMOCOCCAL VACCINE Aged Out No long er eligible based on patient's age to complete this topic Care Teams Executive Communications Manager Relationship Specialty Start Date End Date Marty Morales MD PCP - General 09/21/18
--- OUTSIDE RECORDS SUMMARY | 2025-01-01 06:39 | XMS_ITS | Clinical Summary ---
Author Organization [facility] Address [address] [place] [address] Care Team Providers Care Firefighter Marine Name Role Phone Marty Morales MD Primary Care Provider [phone] Paulette Escalona MD Unavailable [phone] Allergies No known active allergies Medications [...] 12/03/2023 Hyperlipidemia 12/03/2023 GERD (gastroesophageal reflux disease) 4 Kidney stone 12/03/2023 Osteoarthritis 12/03/2023 History of artificial joint 08/16/2015 Knee pain 05/13/2015 Surgical History Surgery Date Site/Laterality Comments TOTAL KNEE ARTHROPLASTY Bilateral ROTATOR CUFF REPAIR Left NEPHROURETERAL STENT PLACEMENT NEW ACCESS LEFT Left URETERAL STENT PLACEMENT VIA EXISTING TRACT LEFT 024 Left Medical History Medical History Date Comments Hyperlipidemia 12/03/2023 Hypertension 12/03/2023 GERD (gastroesophageal reflux disease) 4 Kidney stone 12/03/2023 History of artificial joint 08/16/2015 Osteoarthritis 12/03/2023 Family History Medical History Relation Name Comments Hypertension Brother Hypertension; Relation Name Status Comments Brother Social History Tobacco Use Types Packs/Day Years [...] when you are drinking? 1 or 2 Q3: How often do you have si [...] on file Legal Sex Male 1:36 AM NATURAL DEVELOPER Gender Identity Not on file Sexual Orientation Not on file Obstetrics History Last Filed Vital Signs Vital Sign Reading Time Taken Comments Blood Pressure 134/91 12/15/2023 2:15 PM NATURAL DEVELOPER Pulse 51 12/15/2023 2:15 PM NATURAL DEVELOPER Temperature 36.6 C (97.9 F) 12/15/2023 12:27 PM NATURAL DEVELOPER Respiratory Rate 20 12/15/2023 2:15 PM NATURAL DEVELOPER Oxygen Saturation 94% 12/15/2023 2:15 PM NATURAL DEVELOPER Inhaled Oxygen Concentration - - Weight 99.3 kg (219 lb) 12/15/2023 12:27 PM NATURAL DEVELOPER Height 180.3 cm (5' 11 ) 12/15/2023 12:27 PM NATURAL DEVELOPER Body Mass Index 30.54 12/15/2023 12:27 PM NATURAL DEVELOPER Plan of Treatment Health Maintenance Due Date Last Done Comments Colon Cancer Screening-Colonoscopy 1963 Depression Screening 1963 Hepatitis C Screening 1963 Prostate Cancer Screening-PSA 1963 DTaP/Tdap/Td Vaccine (1 - Tdap) 1974 Hepatitis B Screening 1981 Regular Well Visit/Exam 18-64 1981 Zoster Vaccine (1 of 2) 2013 Covid-19 Vaccine ( season) 2024 11/04/2021, 02/08/2021, 01/18/2021 Influenza Vaccine (#1) 2024 , 08/22/2022, 07/27/2020, Additional history exists Pneumococcal vaccine <65 Aged Out No longer eligible based on patient's age to complete this topic Medical Devices Implanted Type Area Copy Director Device Identifier Shelf Expiration Date Model / Serial / Lot [employer] Amplatz 8.5fr 26cm 6 Sideport Introducer Catheter String [id number] - [id number] Implanted:Qty: 1 on 12/15/2023 at [facility] [employer] 09/17/2026 [id number] Insurance [employer] O[employer] Advance Directives For more information, please contact: [phone] * Full Code (Latest Code Status on File) Date Activated Date Inactivated Comments 12/14/2023 4:43 PM 12/15/2023 11:38 PM Care Teams Firefighter Marine Relationship Specialty Start Date End Date Marty Morales MD PCP - General 05/07/19 Paulette Escalona MD [address] [facility] [address] [place] [address] Consulting Physician Urology 12/15/23
--- OUTSIDE RECORDS SUMMARY | 2025-01-01 06:39 | XMS_ITS | Data Portability ---
Author Organization [facility] [place] [facility] Address [address] [place] [address] Care Team Providers Care Travel Assistant Name Role Phone DEZ MORALES Primary Care Provider Unavailabl e Assessment Encounter Date Assessment Date Assessment LastModified by Organization Details LastModified Time 02/09/2024 02/09/2024 Continue current therapy blood pressure is controlled obtain old records so that we can verify immunizations and screenings diagnosis and assessment and plan have been discussed and medications to treat those problems have been discussed all questions answered to patient's satisfaction follow-up 6 [email or web address] Not available 03/08/2024 23:33:30 09/20/2024 09/20/2024 diagnosis discussed medications reviewed obtain his colon cancer screening from his previous clinic. He believes he is up-to-date on immunizations as well. We will have to look at the old records when they come across see me back in 6 months [email or web address] Not available 10/01/2024 12:22:43 11/29/2024 11/29/2024 I would suspect maybe a little bit of sciatica given the presentation we will go ahead and give him a Medrol Dosepak hold off any physical therapy or any imaging he would like to just try that 1st. Blood pressure was discussed as well today says that he has been little bit less than active because of the holidays in the weather he would like to have the opportunity to see if that is a trend as it is opposed to just 1 reading he will back off canteen he will not take any anti-inflammator ies unless absolutely necessary he will not take any during the Medrol Dosepak phase he will let me know in a week how he is doing. [email or web address] Not available 11/29/2024 21:11:43 Plan of Treatment Reminders Order Date Submit Date Provider Last Modified By Organization Details Last Modified Time Details Appointments ANY 15 2024 02:00P Irma Morales MD Not available Not available Not available Lab PSA, total, serum or plasma 2023 024 [place] [facility], [address], [place], [address], 02/10/2024 08:30:20 lipid panel, serum 2023 024 [place] [facility], [address], [place], [address], 02/10/2024 08:30:18 CBC w/ auto diff 2023 024 [place] [facility], [address], [place], [address], 02/10/2024 08:30:19 CMP, serum or plasma 2023 024 [place] [facility], [address], [place], [address], 02/10/2024 08:30:19 Referral None recorded . Procedures None recorded . Surgeries None recorded . Imaging None recorded . Medication Orders Medrol (Marc) 4 mg tablets in a dose pack 2024 025 [id number] [facility] #[id number], [address], [place], [address], 11/29/2024 17:11:38 Patient TargetsNo targets recorded. Patient Instructions Encounter Date Encounter Id Patient Instructions Last Modified By Organization Details Last Modified Time 11/29/2024 [id number] A healthy lifestyle: care instructions [email or web address] Not available 11/29/2024 17:11:38 Reason for Referral None Reported. Results Created Date Observation Date Name Description Value Unit Range Abnormal Flag Note LastModifiedBy Organization Detail LastModifiedTime 02/09/20 24 02/10/2024 LIPID PANEL cholesterol, total 154 mg/dL 100-19 9 Not Available [facility] ([facility]) [address], [place], [address], 02/10/2024 08:30:18 02/09/20 24 02/10/2024 LIPID PANEL triglyceride s 176 mg/dL 0-149 above high normal Not Available [facility] ([facility]) [address] [place], [address], 02/10/2024 08:30:18 02/09/20 24 02/10/2024 LIPID PANEL HDL cholesterol 42 mg/dL >39 Not Available [facility]) [address] [place], [address], 02/10/2024 08:30:18 02/09/20 24 02/10/2024 LIPID PANEL VLDL cholesterol janak 30 mg/dL 5-40 Not Available [facility] ([facility]) [address] [place], [address], 02/10/2024 08:30:18 02/09/20 24 02/10/2024 LIPID PANEL LDL chol calc ([facility]) 82 mg/dL 0-99 Not Available [facility] ([facility]) [address] [place], [address], 02/10/2024 08:30:18 02/09/20 24 02/10/2024 COMP. METAB OLIC PANEL (14) glucose 98 mg/dL 70-99 Not Available [facility] ([facility]) [address] [place], [address], 02/10/2024 08:30:19 02/09/20 24 02/10/2024 COMP. METAB OLIC PANEL (14) BUN 25 mg/dL 8-27 Not Available [facility] ([facility]) [address] [place], [address], 02/10/2024 08:30:19 02/09/20 24 02/10/2024 COMP. METAB OLIC PANEL (14) creatinine 1.04 mg/dL 0.76-1 .27 Not Available [facility] ([facility]) [address] [facility] [place], [address], 02/10/2024 08:30:19 02/09/20 24 02/10/2024 COMP. METAB OLIC PANEL (14) eGFR 82 mL/mi n/1.7 3 >59 Not Available [facility] ([facility]) [address] [place], [address], 02/10/2024 08:30:19 02/09/20 24 02/10/2024 COMP. METAB OLIC PANEL (14) BUN/creatini ne ratio 24 10-24 Not Available [facility] ([facility]) [address] [place], [address], 02/10/2024 08:30:19 02/09/20 24 02/10/2024 COMP. METAB OLIC PANEL (14) sodium 141 mmol/ L 134-14 4 Not Available [facility] ([facility]) [address] [place], [address], 02/10/2024 08:30:19 02/09/20 24 02/10/2024 COMP. METAB OLIC PANEL (14) potassium 4.5 mmol/ L 3.5-5. 2 Not Available [facility] ([facility]) [address] [place], [address], 02/10/2024 08:30:19 02/09/20 24 02/10/2024 COMP. METAB OLIC PANEL (14) chloride 103 mmol/ L 96-106 Not Available [facility] ([facility]) [address] [place], [address], 02/10/2024 08:30:19 02/09/20 24 02/10/2024 COMP. METAB OLIC PANEL (14) carbon dioxide, total 23 mmol/ L 20-29 Not Available [facility] ([facility]) [address] [place], [address], 02/10/2024 08:30:19 02/09/20 24 02/10/2024 COMP. METAB OLIC PANEL (14) calcium 9.5 mg/dL 8.6-10 .2 Not Available [facility] ([facility]) [address], [place], [address], 02/10/2024 08:30:19 02/09/20 24 02/10/2024 COMP. METAB OLIC PANEL (14) protein, total 7.1 g/dL 6.0-8. 5 Not Available [facility] ([facility] [address] [place], [address], 02/10/2024 08:30:19 02/09/20 24 02/10/2024 COMP. METAB OLIC PANEL (14) albumin 4.6 g/dL 3.8-4. 9 Not Available [facility] ([facility]) [address], [place], [address], 02/10/2024 08:30:19 02/09/20 24 02/10/2024 COMP. METAB OLIC PANEL (14) globulin, total 2.5 g/dL 1.5-4. 5 Not Available [facility] ([facility]) [address] [facility] [place], [address], 02/10/2024 08:30:19 02/09/20 24 02/10/2024 COMP. METAB OLIC PANEL (14) A/G ratio 1.8 1.2-2. 2 Not Available [facility] ([facility]) [address] [facility] [place], [address], 02/10/2024 08:30:19 02/09/20 24 02/10/2024 COMP. METAB OLIC PANEL (14) bilirubin, total 0.4 mg/dL 0.0-1. 2 Not Available [facility] ([facility]) [address] [facility] [place], [address], 02/10/2024 08:30:19 02/09/20 24 02/10/2024 COMP. METAB OLIC PANEL (14) alkaline phosphatase 134 IU/L 44-121 above high normal Not Available [facility] ([facility]) [address], [place], [address], 02/10/2024 08:30:19 02/09/20 24 02/10/2024 COMP. METAB OLIC PANEL (14) AST (SGOT) 18 IU/L 0-40 Not Available [facility] ([facility]) [address], [place], [address], 02/10/2024 08:30:19 02/09/20 24 02/10/2024 COMP. METAB OLIC PANEL (14) ALT (SGPT) 28 IU/L 0-44 Not Available [facility] ([facility]) [address], [place], [address], 02/10/2024 08:30:19 02/09/20 24 02/10/2024 CBC WITH DIFFE RENTI AL/PL ATELE T WBC 7.7 x10e3 /uL 3.4-10 .8 Not Available [facility] ([facility]) [address], [place], [address], 02/10/2024 08:30:19 02/09/20 24 02/10/2024 CBC WITH DIFFE RENTI AL/PL ATELE T RBC 4.66 x10e6 /uL 4.14-5 .80 Not Available [facility] ([facility]) [address], [place], [address], 02/10/2024 08:30:19 02/09/20 24 02/10/2024 CBC WITH DIFFE RENTI AL/PL ATELE T hemoglobin 14.1 g/dL 13.0-1 7.7 Not Available [facility] ([facility]) [address], [place], [address], 02/10/2024 08:30:19 02/09/20 24 02/10/2024 CBC WITH DIFFE RENTI AL/PL ATELE T hematocrit 42.1 % 37.5-5 1.0 Not Available [facility] ([facility]) [address], [place], [address], 02/10/2024 08:30:19 02/09/20 24 02/10/2024 CBC WITH DIFFE RENTI AL/PL ATELE T MCV 90 fL 79-97 Not Available [facility] ([facility]) [address], [place], [address], 02/10/2024 08:30:19 02/09/20 24 02/10/2024 CBC WITH DIFFE RENTI AL/PL ATELE T MCH 30.3 pg 26.6-3 3.0 Not Available [facility] ([facility]) [address], [place], [address], 02/10/2024 08:30:19 02/09/20 24 02/10/2024 CBC WITH DIFFE RENTI AL/PL ATELE T MCHC 33.5 g/dL 31.5-3 5.7 Not Available [facility] ([facility]) [address], [place], [address], 02/10/2024 08:30:19 02/09/20 24 02/10/2024 CBC WITH DIFFE RENTI AL/PL ATELE T RDW 13.6 % 11.6-1 5.4 Not Available [facility] ([facility]) [address], [place], [address], 02/10/2024 08:30:19 02/09/20 24 02/10/2024 CBC WITH DIFFE RENTI AL/PL ATELE T platelets 240 x10e3 /uL 150-45 0 Not Available [facility] ([facility]) [address], [place], [address], 02/10/2024 08:30:19 02/09/20 24 02/10/2024 CBC WITH DIFFE RENTI AL/PL ATELE T neutrophils 75 % notest ab. Not Available [facility] ([facility]) [address], [place], [address], 02/10/2024 08:30:19 02/09/20 24 02/10/2024 CBC WITH DIFFE RENTI AL/PL ATELE T lymphs 16 % notest ab. Not Available [facility] ([facility]) [address], [place], [address], 02/10/2024 08:30:19 02/09/20 24 02/10/2024 CBC WITH DIFFE RENTI AL/PL ATELE T monocytes 6 % notest ab. Not Available [facility] ([facility]) [address], [place], [address], 02/10/2024 08:30:19 02/09/20 24 02/10/2024 CBC WITH DIFFE RENTI AL/PL ATELE T eos 3 % notest ab. Not Available [facility] ([facility]) [address], [place], [address], 02/10/2024 08:30:19 02/09/20 24 02/10/2024 CBC WITH DIFFE RENTI AL/PL ATELE T basos 0 % notest ab. Not Available [facility] ([facility]) [address], [place], [address], 02/10/2024 08:30:19 02/09/20 24 02/10/2024 CBC WITH DIFFE RENTI AL/PL ATELE T neutrophils (absolute) 5.8 x10e3 /uL 1.4-7. 0 Not Available [facility] ([facility]) [address], [place], [address], 02/10/2024 08:30:19 02/09/20 24 02/10/2024 CBC WITH DIFFE RENTI AL/PL ATELE T lymphs (absolute) 1.2 x10e3 /uL 0.7-3. 1 Not Available [facility] ([facility]) [address], [place], [address], 02/10/2024 08:30:19 02/09/20 24 02/10/2024 CBC WITH DIFFE RENTI AL/PL ATELE T monocytes(ab solute) 0.5 x10e3 /uL 0.1-0. 9 Not Available [facility] ([facility]) [address], [place], [address], 02/10/2024 08:30:19 02/09/20 24 02/10/2024 CBC WITH DIFFE RENTI AL/PL ATELE T eos (absolute) 0.2 x10e3 /uL 0.0-0. 4 Not Available [facility] ([facility]) [address], [place], [address], 02/10/2024 08:30:19 02/09/20 24 02/10/2024 CBC WITH DIFFE RENTI AL/PL ATELE T baso (absolute) 0.0 x10e3 /uL 0.0-0. 2 Not Available [facility] ([facility]) [address], [place], [address], 02/10/2024 08:30:19 02/09/20 24 02/10/2024 CBC WITH DIFFE RENTI AL/PL ATELE T immature granulocytes 0 % notest ab. Not Available [facility] ([facility]) [address], [place], [address], 02/10/2024 08:30:19 02/09/20 24 02/10/2024 CBC WITH DIFFE RENTI AL/PL ATELE T immature grans (abs) 0.0 x10e3 /uL 0.0-0. 1 Not Available [facility] ([facility]) [address] [place], [address], 02/10/2024 08:30:19 02/09/20 24 02/10/2024 PROST ATE-S PECIF IC AG prostate specific Ag 0.8 NG/mL 0.0-4. 0 Isma ECLIA metho dolog y. Accor ding to the Ameri can [employer] g[employer] iatio n, Serum PSA shoul d decre ase and remai n at undet ectab le level s after radic al prost atect thee. The AUA defin es bioch emica l recur rence as an initi al PSA value 0.2 ng/mL or great er follo wed by a subse quent confi rmato ry PSA value 0.2 ng/mL or great er. Value s obtai brianna with diffe rent assay metho ds or kits canno t be used inter jay eably . Resul ts canno t be inter prete d as absol chefornak evide nce of the prese nce or absen ce of ravinder almaguer se. Not Available [facility] ([facility]) [address], [place], [address], 02/10/2024 08:30:20 09/20/20 24 09/21/2024 LIPID PANEL cholesterol, total 126 mg/dL 100-19 9 Not Available [facility] ([facility]) [address], [place], [address], 09/21/2024 11:17:31 09/20/20 24 09/21/2024 LIPID PANEL triglyceride s 120 mg/dL 0-149 Not Available [facility] ([facility]) [address] [place], [address], 09/21/2024 11:17:31 09/20/20 24 09/21/2024 LIPID PANEL HDL cholesterol 41 mg/dL >39 Not Available [facility] ([facility]) [address], [place], [address], 09/21/2024 11:17:31 09/20/20 24 09/21/2024 LIPID PANEL VLDL cholesterol janak 22 mg/dL 5-40 Not Available [facility] ([facility]) [address] [place], [address], 09/21/2024 11:17:31 09/20/20 24 09/21/2024 LIPID PANEL LDL chol calc ([facility]) 63 mg/dL 0-99 Not Available [facility] ([facility]) [address] [place], [address], 09/21/2024 11:17:31 09/20/20 24 09/21/2024 COMP. METAB OLIC PANEL (14) glucose 105 mg/dL 70-99 above high normal Not Available [facility] ([facility]) [address] [place], [address], 09/21/2024 11:17:33 09/20/20 24 09/21/2024 COMP. METAB OLIC PANEL (14) BUN 24 mg/dL 8-27 Not Available [facility] ([facility]) [address] [place], [address], 09/21/2024 11:17:33 09/20/20 24 09/21/2024 COMP. METAB OLIC PANEL (14) creatinine 1.30 mg/dL 0.76-1 .27 above high normal Not Available [facility] ([facility]) [address] [place], [address], 09/21/2024 11:17:33 09/20/20 24 09/21/2024 COMP. METAB OLIC PANEL (14) eGFR 63 mL/mi n/1.7 3 >59 Not Available [facility] ([facility]) [address] [place], [address], 09/21/2024 11:17:33 09/20/20 24 09/21/2024 COMP. METAB OLIC PANEL (14) BUN/creatini ne ratio 18 10-24 Not Available [facility] ([facility]) [address] [place], [address], 09/21/2024 11:17:33 09/20/20 24 09/21/2024 COMP. METAB OLIC PANEL (14) sodium 142 mmol/ L 134-14 4 Not Available [facility] ([facility]) [address], [place], [address], 09/21/2024 11:17:33 09/20/20 24 09/21/2024 COMP. METAB OLIC PANEL (14) potassium 4.7 mmol/ L 3.5-5. 2 Not Available [facility] ([facility]) [address], [place], [address], 09/21/2024 11:17:33 09/20/20 24 09/21/2024 COMP. METAB OLIC PANEL (14) chloride 104 mmol/ L 96-106 Not Available [facility] ([facility]) [address], [place], [address], 09/21/2024 11:17:33 09/20/20 24 09/21/2024 COMP. METAB OLIC PANEL (14) carbon dioxide, total 24 mmol/ L 20-29 Not Available [facility] ([facility]) [address], [place], [address], 09/21/2024 11:17:33 09/20/20 24 09/21/2024 COMP. METAB OLIC PANEL (14) calcium 9.3 mg/dL 8.6-10 .2 Not Available [facility] ([facility]) [address], [place], [address], 09/21/2024 11:17:33 09/20/20 24 09/21/2024 COMP. METAB OLIC PANEL (14) protein, total 6.8 g/dL 6.0-8. 5 Not Available [facility] ([facility]) [address], [place], [address], 09/21/2024 11:17:33 09/20/20 24 09/21/2024 COMP. METAB OLIC PANEL (14) albumin 4.3 g/dL 3.9-4. 9 Not Available [facility] ([facility]) [address] [place], [address], 09/21/2024 11:17:33 09/20/20 24 09/21/2024 COMP. METAB OLIC PANEL (14) globulin, total 2.5 g/dL 1.5-4. 5 Not Available [facility] ([facility]) [address] [place], [address], 09/21/2024 11:17:33 09/20/20 24 09/21/2024 COMP. METAB OLIC PANEL (14) bilirubin, total 0.4 mg/dL 0.0-1. 2 Not Available [facility] ([facility]) [address] [place], [address], 09/21/2024 11:17:33 09/20/20 24 09/21/2024 COMP. METAB OLIC PANEL (14) alkaline phosphatase 116 IU/L 44-121 Not Available [facility]) [address] [place], [address], 09/21/2024 11:17:33 09/20/20 24 09/21/2024 COMP. METAB OLIC PANEL (14) AST (SGOT) 16 IU/L 0-40 Not Available [facility] ([facility]) [address] [place], [address], 09/21/2024 11:17:33 09/20/20 24 09/21/2024 COMP. METAB OLIC PANEL (14) ALT (SGPT) 18 IU/L 0-44 Not Available [facility] ([facility]) [address] [place], [address], 09/21/2024 11:17:33 09/20/20 24 09/21/2024 CBC WITH DIFFE RENTI AL/PL ATELE T WBC 6.8 x10e3 /uL 3.4-10 .8 Not Available [facility] ([facility]) [address] [place], [address], 09/21/2024 11:17:34 09/20/20 24 09/21/2024 CBC WITH DIFFE RENTI AL/PL ATELE T RBC 4.53 x10e6 /uL 4.14-5 .80 Not Available [facility] ([facility]) [address] [place], [address], 09/21/2024 11:17:34 09/20/20 24 09/21/2024 CBC WITH DIFFE RENTI AL/PL ATELE T hemoglobin 13.3 g/dL 13.0-1 7.7 Not Available [facility] ([facility]) [address] [place], [address], 09/21/2024 11:17:34 09/20/20 24 09/21/2024 CBC WITH DIFFE RENTI AL/PL ATELE T hematocrit 41.4 % 37.5-5 1.0 Not Available [facility] ([facility]) [address] [place], [address], 09/21/2024 11:17:34 09/20/20 24 09/21/2024 CBC WITH DIFFE RENTI AL/PL ATELE T MCV 91 fL 79-97 Not Available [facility] ([facility]) [address] [place], [address], 09/21/2024 11:17:34 09/20/20 24 09/21/2024 CBC WITH DIFFE RENTI AL/PL ATELE T MCH 29.4 pg 26.6-3 3.0 Not Available [facility] ([facility]) [address] [place], [address], 09/21/2024 11:17:34 09/20/20 24 09/21/2024 CBC WITH DIFFE RENTI AL/PL ATELE T MCHC 32.1 g/dL 31.5-3 5.7 Not Available [facility] ([facility]) [address], [place], [address], 09/21/2024 11:17:34 09/20/20 24 09/21/2024 CBC WITH DIFFE RENTI AL/PL ATELE T RDW 13.9 % 11.6-1 5.4 Not Available [facility] ([facility]) [address], [place], [address], 09/21/2024 11:17:34 09/20/20 24 09/21/2024 CBC WITH DIFFE RENTI AL/PL ATELE T platelets 268 x10e3 /uL 150-45 0 Not Available [facility] ([facility]) [address], [place], [address], 09/21/2024 11:17:34 09/20/20 24 09/21/2024 CBC WITH DIFFE RENTI AL/PL ATELE T neutrophils 72 % notest ab. Not Available [facility] ([facility]) [address], [place], [address], 09/21/2024 11:17:34 09/20/20 24 09/21/2024 CBC WITH DIFFE RENTI AL/PL ATELE T lymphs 18 % notest ab. Not Available [facility] ([facility]) [address] [facility], [place], [address], 09/21/2024 11:17:34 09/20/20 24 09/21/2024 CBC WITH DIFFE RENTI AL/PL ATELE T monocytes 8 % notest ab. Not Available [facility] ([facility]) [address], [place], [address], 09/21/2024 11:17:34 09/20/20 24 09/21/2024 CBC WITH DIFFE RENTI AL/PL ATELE T eos 2 % notest ab. Not Available [facility] ([facility]) [address] [facility] [address], [place], [address], 09/21/2024 11:17:34 09/20/20 24 09/21/2024 CBC WITH DIFFE RENTI AL/PL ATELE T basos 0 % notest ab. Not Available [facility] ([facility]) [address] [facility] [facility], [place], [address], 09/21/2024 11:17:34 09/20/20 24 09/21/2024 CBC WITH DIFFE RENTI AL/PL ATELE T neutrophils (absolute) 5.0 x10e3 /uL 1.4-7. 0 Not Available [facility] ([facility]) [address] [facility], [place], [address], 09/21/2024 11:17:34 09/20/20 24 09/21/2024 CBC WITH DIFFE RENTI AL/PL ATELE T lymphs (absolute) 1.2 x10e3 /uL 0.7-3. 1 Not Available [facility] ([facility]) [address] [facility], [place], [address], 09/21/2024 11:17:34 09/20/20 24 09/21/2024 CBC WITH DIFFE RENTI AL/PL ATELE T monocytes(ab solute) 0.5 x10e3 /uL 0.1-0. 9 Not Available [facility] ([facility]) [address] [facility] [facility], [place], [address], 09/21/2024 11:17:34 09/20/20 24 09/21/2024 CBC WITH DIFFE RENTI AL/PL ATELE T eos (absolute) 0.1 x10e3 /uL 0.0-0. 4 Not Available [facility] ([facility]) [address] [facility] [facility], [place], [address], 09/21/2024 11:17:34 09/20/20 24 09/21/2024 CBC WITH DIFFE RENTI AL/PL ATELE T baso (absolute) 0.0 x10e3 /uL 0.0-0. 2 Not Available [facility] ([facility]) [address] [facility] [facility], [place], [address], 09/21/2024 11:17:34 09/20/20 24 09/21/2024 CBC WITH DIFFE RENTI AL/PL ATELE T immature granulocytes 0 % notest ab. Not Available [facility] ([facility]) [address] [facility], [place], [address], 09/21/2024 11:17:34 09/20/20 24 09/21/2024 CBC WITH DIFFE RENTI AL/PL ATELE T immature grans (abs) 0.0 x10e3 /uL 0.0-0. 1 Not Available [facility] ([facility]) [address] [facility], [place], [address], 09/21/2024 11:17:34 11/29/19 25 11/30/2024 BASIC METAB OLIC PANEL (7) glucose 100 mg/dL 70-99 above high normal Not Available [facility] ([facility]) [address] [facility] [place], [address], 11/30/2024 08:23:44 11/29/19 25 11/30/2024 BASIC METAB OLIC PANEL (7) BUN 21 mg/dL 8-27 Not Available [facility] ([facility]) [address] [place], [address], 11/30/2024 08:23:44 11/29/19 25 11/30/2024 BASIC METAB OLIC PANEL (7) creatinine 1.32 mg/dL 0.76-1 .27 above high normal Not Available [facility] ([facility]) [address] [facility] [place], [address], 11/30/2024 08:23:44 11/29/19 25 11/30/2024 BASIC METAB OLIC PANEL (7) eGFR 61 mL/mi n/1.7 3 >59 Not Available [facility] ([facility]) [address] [facility], [place], [address], 11/30/2024 08:23:44 11/29/19 25 11/30/2024 BASIC METAB OLIC PANEL (7) BUN/creatini ne ratio 16 10-24 Not Available [facility] [address] [facility], [place], [address], 11/30/2024 08:23:44 11/29/19 25 11/30/2024 BASIC METAB OLIC PANEL (7) sodium 140 mmol/ L 134-14 4 Not Available [facility] ([facility]) [address] [facility], [place], [address], 11/30/2024 08:23:44 11/29/19 25 11/30/2024 BASIC METAB OLIC PANEL (7) potassium 4.6 mmol/ L 3.5-5. 2 Not Available [facility] ([facility]) [address] [facility], [place], [address], 11/30/2024 08:23:44 11/29/19 25 11/30/2024 BASIC METAB OLIC PANEL (7) chloride 103 mmol/ L 96-106 Not Available [facility] ([facility]) [address], [place], [address], 11/30/2024 08:23:44 11/29/19 25 11/30/2024 BASIC METAB OLIC PANEL (7) carbon dioxide, total 23 mmol/ L 20-29 Not Available [facility] ([facility]) [address] [facility], [place], [address], 11/30/2024 08:23:44 11/22/19 25 09/16/2018 colon oscop y scree jp (PROC ) No observ ation record ed. BARCODE Not Available 2024 14:52:30 Result Notes None recorded. Problems Name Problem SNOMED Code Status Onset Date Resolution Date Notes Provider Name and Address Organization Details Recorded Time Essential hypertension [id number] Active 2023 Sofya Cunningham MA null, [place] - [place] 12:42:25 Gastroesophage al reflux disease without esophagitis 655507363 Active 2023 Dez Morales MD Attn: Herminio duncan,[address] [facility], [place], [address], [facility] - [facility] 4 12:22:12 Hyperlipidemia 18673134 Active 2023 Dez Morales MD Attn: Herminio duncan,[address] [facility], [place], [address], [facility] - [place] 12:22:19 Problem Notes None recorded. Procedures Surgical History Date Name Laterality Status Provider Name and Address Organization Details Recorded Time Cholecystectomy completed Angelica Galan MA [facility] 02/09/2024 11:59:52 Eye Surgery completed Angelica Galan MA [facility] 02/09/2024 12:00:02 Joint Replacement completed Angelica Galan MA [facility] 02/09/2024 12:00:12 Knee Surgery completed Angelica Galan MA [facility] 02/09/2024 12:00:18 Vasectomy completed Angelica Galan MA [facility] 02/09/2024 12:00:28 Imaging Results Imaging Date Name Status LastModified by Organiz ation Details LastModified Time 09/16/2018 colonoscopy screening (PROC) completed [facility] Information not available 11/22/2024 14:52:30 Procedure Notes None recorded. Medical Equipment None Reported. Allergies No known drug allergies Medications Name Sig Start Date Stop Date Status Note LastModified by Organization Details LastModified Time nifedipin e ER 30 mg tablet,ex tended release 24 hr TAKE 1 TABLET BY MOUTH EVERY DAY 08/15 completed duplicat e Not Available Not Available Not Available atorvasta tin 20 mg tablet TAKE 1 TABLET BY MOUTH EVERY DAY 2024 active Not Available Not Available Not Avai lable azithromy carmyn 250 mg tablet TAKE 2 TABLETS BY MOUTH TODAY, THEN TAKE 1 TABLET DAILY FOR 4 DAYS DIRECTED 02/08 completed Not Available Not Available Not Available hydrocodo ne 5 mg-acetam inophen 325 mg tablet 02/08 completed Not Available Not Available Not Available nifedipin e ER 30 mg tablet,ex tended release TAKE 1 TABLET BY MOUTH EVERY DAY active Not Available Not Available No t Available ciproflox acin 500 mg tablet TAKE 1 TABLET BY MOUTH TWICE A DAY 02/08 completed Not Available Not Available Not Available sulfameth oxazole 800 mg-trimet hoprim 160 mg tablet TAKE 1 TABLET BY MOUTH EVERY 12 HOURS FOR 3 DAYS 02/08 completed Not Available Not Available Not Available terbinafi ne HCl 250 mg tablet TAKE 1 TAB BY MOUTH EVERY DAY FOR 14 DAYS 11/29 completed Not Available Not Available Not Available pantopraz ole 40 mg tablet,de layed release TAKE 1 TABLET BY MOUTH EVERY DAY active Not Available Not Available No t Available diclofena c sodium 50 mg tablet,de layed release TAKE 1 TABLET BY MOUTH TWICE A DAY NEEDED FOR 7 DAYS 02/08 completed Not Available Not Available Not Available ibuprofen 600 mg tablet TAKE 1 TABLET BY MOUTH EVERY 8 HOURS NEEDED. active Not Available Not Available No t Available methylpre dnisolone 4 mg tablets in a dose pack TAKE 6 TABLETS ON DAY 1 DIRECTED ON PACKAGE AND DECREASE BY 1 TAB EACH DAY FOR A TOTAL OF 6 DAYS active Not Available Not Available No t Available ketoconaz ole 2 % topical cream APPLY TO AFFECTED AREA TWICE A DAY FOR 2-4 WEEKS 11/29 completed Not Available Not Available Not Available Vitals Date Recorded Body height Body mass index (BMI) Body weight Heart rate Oxygen saturation Oxygen saturation in Arterial blood by Pulse oximetry Systolic blood pressure Diastolic blood pressure Provider Name and Address Organization Details Last Updated DateTime 4 180.34 cm 32.1 kg/m2 152861. 25 g 65 /min 97 % 97 % 132 mm[Hg] 70 mm[Hg] Angelica Galan [place] [facility] 4 12:03:11 Date Recorded Body height Body mass index (BMI) Body weight Oxygen saturation Oxygen saturation in Arterial blood by Pulse oximetry Heart rate Systolic blood pressure Diastolic blood pressure Provider Name and Address Organization Details Last Updated DateTime 4 180.34 cm 30.7 kg/m2 80226.3 2 g 97 % 97 % 70 /min 130 mm[Hg] 70 mm[Hg] Alen Brooke MA [facility] 4 16:15:55 Date Recorded Body height Body mass index (BMI) Body weight Heart rate Oxygen saturation Oxygen saturation in Arterial blood by Pulse oximetry Systolic blood pressure Diastolic blood pressure Provider Name and Address Organization Details Last Updated DateTime 5 180.34 cm 32.8 kg/m2 806006. 21 g 72 /min 97 % 97 % 140 mm[Hg] 80 mm[Hg] Breanna Florian MA [facility] 5 16:30:46 Social History Question Answer Notes LastModified by Organization Details LastModified Time Tobacco Smoking Status Never Smoker Angelica Galan MA [facility], [facility] 02/09/2024 11:58:25 Do You Have An Advance Directive? Yes Information not available 02/09/2024 What Is Your Level Of Alcohol Consumption? Occasional Information not available 02/09/2024 Are You Blind Or Do You Have Difficulty Seeing? No Information not available 02/09/2024 What Is Your Level Of Caffeine Consumption? None Information not available 02/09/2024 In The 14 Days Before Symptom Onset, Have You Had Close Contact With A Laboratory-confi rmed COVID-19 While That Case Was Ill? No Information not available 11/29/2024 In The 14 Days Before Symptom Onset, Have You Had Close Contact With A Person Who Is Under Investigation For COVID-19 While That Person Was Ill? No Information not available 11/29/2024 Have You Been To An Area Known To Be High Risk For COVID-19? No Information not available 11/29/2024 Are You Deaf Or Do You Have Serious Difficulty Hearing? No Information not available 02/09/2024 What Type Of Diet Are You Following? REGULAR Information not available 02/09/2024 Are There Any Guns Present In Your Home? No Information not available 11/29/2024 What Was The Date Of Your Most Recent Tobacco Screening? 11/29/2024 Information not available 11/29/2024 What Is Your Relationship Status? Other In Relationship Information not available 02/09/2024 Do You Use Your Seat Belt Or Car Seat Routinely? Yes Information not available 02/09/2024 Do You Have Smoke And Carbon Monoxide Detectors In Your Home? Yes Information not available 02/09/2024 Do You Feel Stressed (tense, Restless, Nervous, Or Anxious, Or Unable To Sleep At Night)? [id number] Information not available 02/09/2024 Do You Use Any Illicit Or Recreational Drugs? No Information not available 02/09/2024 Do You Use Sunscreen Routinely? No Information not available 11/29/2024 Has Tobacco Cessation Counseling Been Provided? No Information not available 02/09/2024 Do You Or Have You Ever Used Any Other Forms Of Tobacco Or Nicotine? No Information not available 02/09/2024 Sex: Male Functional Status Question Answer Note LastModified by Code Feverat ion Details LastModified Time Are you able to care for yourself? Yes Information not available 02/09/2024 What is your exercise level? Occasional Information not available 02/09/2024 Mental Status None recorded. Family History Relationship Description Onset Age of this Age Resolved Age Notes LastModified by Organization Details LastModified Time Mother Disorder of thyroid gland bandersonma Not available 01/2024 11:58:05 Father Hypertensive disorder bandersonma Not available 01/2024 11:58:10 Medical History Condition Response Coronary Artery Disease N Other N High Blood Pressure Y Atrial Fibrillation N Kidney or Bladder Problems N Thyroid Problems N GI Problems N Depression N COPD N Blood Clots N Skin Problems N Anemia N Heart Attack ([place]) N Anxiety Disorder N Diabetes N Muscle, Joint, or Bone Problems N Seizures/Epilepsy N Acid Reflux (GERD) Y Cancer N Stroke N Asthma N Allergies N High Cholesterol Y Hepatitis N Liver Disease N Headaches N Heart Failure N Osteoporosis N Immunizations Vaccine Type Date Status Note Provider Nam e and Address Organization Details Recorded Time Influenza, split virus, quadrivalent, preservative 9 completed KEITH [place], [place] - [facility] 11/29/2024 09:50:13 Influenza, split virus, quadrivalent, preservative 7 completed KEITH [place], [place] - [facility] 11/29/2024 09:50:13 Influenza, split virus, quadrivalent, preservative 8 completed [facility], [place], [place] - [facility] 11/29/2024 09:50:13 Influenza, split virus, quadrivalent, preservative 6 completed [facility], [place] [facility] 11/29/2024 09:50:13 Influenza, MDCK, quadrivalent, PF 2 completed [facility], [place] [facility] 11/29/2024 09:50:13 COVID-19, mRNA, LNP-S, PF, 30 mcg/0.3 mL dose 1 completed [facility], [place] [facility] 11/29/2024 09:50:13 COVID-19, mRNA, LNP-S, PF, 30 mcg/0.3 mL dose 1 completed [facility], [place] [facility] 11/29/2024 09:50:13 COVID-19, mRNA, LNP-S, PF, 30 mcg/0.3 mL dose 1 completed [facility], [place] [facility] 11/29/2024 09:50:13 Influenza, split virus, trivalent, preservative 3 completed [facility], [place] [facility] 11/29/2024 09:50:13 Td (adult), 5 Lf tetanus toxoid, preservative free, adsorbed 6 completed [facility], [place] [facility] 11/29/2024 09:50:13 Influenza, split virus, quadrivalent, PF 0 completed [facility], [place] [facility] 11/29/2024 09:50:14 Influenza, split virus, quadrivalent, PF 3 completed [facility], [place] [facility] 11/29/2024 09:50:14 Influenza, split virus, quadrivalent, PF 5 completed [facility], [place] [facility] 11/29/2024 09:50:14 Influenza, split virus, quadrivalent, PF 1 completed [facility], [place] [facility] 11/29/2024 09:50:14 Influenza, split virus, trivalent, PF 4 completed Breanna Florian MA [place], [place] - [facility] 11/29/2024 09:50:22 Past Encounters Encounter ID Performer Location Encounter Start Date Encounter Closed Date Diagnosis/Indication Diagnosis SNOMED-CT Code Diagnosis ICD10 Code Diagnosis Note [id number] Dez Morales MD [facility] (Adult Med) [address] [place] [phone] 02/09/2024 11:33:45 02/09/2024 12:41:36 Essential hypertension 31642960 I10 Gastroesop hageal reflux disease without esophagitis 633629824 K21.9 Hyperlipidemia 52510332 E78.5 Gout 19496580 M10.9 Screening for malignant neoplasm of prostate 002627209 Z12.5 [id number] MD [facility] (Adult Med) [address] [place] [phone] 09/20/2024 16:02:51 09/20/2024 16:59:18 Essential hypertension 16116516 I10 Gastroesop hageal reflux disease without esophagitis 597448671 K21.9 Hyperlipidemia 52530697 E78.5 [id number] Dez Morales MD [facility] (Adult Med) [address] [place] [phone] 11/29/2024 16:08:13 11/29/2024 16:56:59 Body mass index 30+ - obesity 559522917 Z68.32 Obesity 115648905 E66.9 Paresthesia 27065781 R20 .2 Health Concerns Section Related Observation LastModified by Organization Detai ls LastModified Time None Recorded Concern Status LastModified by Organization Details LastModified Time None Recorded Advance Directives Directive Y: Payers Encounter Date Sequence Insurance Name Policy Number Policy Thomas Covered Member ID Thomas Member ID Guarantor Name 02/09/2024 1 [place] [id number] Jasper Martinez [id number] Jasper Martinez 09/20/2024 1 [place] [id number] Jasper Martinez [id number] Jasper Martinez 11/29/2024 1 [place] [facility] [place] [id number] Jasper Martinez [id number] Jasper Martinez Notes Date Note Type Note Provider Name and Address Organization Details Recorded Time 02/09/2024 text/html 58-year-old with hypertension GERD hyperlipidemia and gout and osteoarthritis comes in for follow-up of his medical problems. Hypertension taking his medication no headache or dizziness. GERD no nausea no vomiting hyperlipidemia he can do better on red meat gout no flareups Dez Morales MD Attn: Accounting,[address] [facility], [place], [address], [facility] - [facility] 03/08/2024 23:33:48 09/20/2024 text/html hypertension no headaches or dizziness. Hyperlipidemia taking his atorvastatin with no side effects and trying to follow a low-fat diet. GERD no nausea no vomiting taking pantoprazole with no side effects. Dez Morales MD Attn: Accounting, [address] [facility] [facility], [place], [address], [facility] - [facility] 10/01/2024 12:24:01 11/29/2024 text/html he has had some tingling down his left leg with no back pain at this time this has been going on for maybe a month. There has been no weakness no bowel or bladder incontinence. It is made worse by lying down nothing seems to make it better and it is intermittent Dez Morales MD Attn: Accounting, [address] [facility] [facility], [place], [address], [facility] - [facility] 11/29/2024 21:12:03
--- OUTSIDE RECORDS SUMMARY | 2025-01-01 06:39 | XMS_ITS | Clinical Summary ---
Author Organization 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 Gender Identity Not on file Sexual Orientation Not on file Plan of Treatment Health Maintenance Due Date Last Done Comments Hepatitis C Virus (HCV) Screening 1965 TdaP Immunization 1965 Colonoscopy 2008 Colorectal Cancer Screening 2008 Cologuard 2013 Immunochemical Fecal Occult Blood 2013 Pneumococcal Immunization (50+ years) (1 of 1 - PCV) 2013 Zoster Immunization (1 of 2) 2013 PSA Discussion 2018 Influenza Immunization (#1) 07/09/202407/09, 08/03/2019, 2018, Additional history exists SARS-COV-2 Immunization (2023- season) 2024 Respiratory Syncytial Virus (RSV) Immunization (Adult) (1 - 1-dose 75+ series) 2038 Hepatitis B Immunization Aged Out No longer eligible based on patient's age to complete this topic Meningococcal Immunization (ACWY) Aged Out No longer eligible based on patient's age to complete this topic Pneumococcal Immunization Combined Aged Out No longer eligible based on patient's age to complete this topic Rotavirus Immunization Aged Out No lo nger eligible based on patient's age to complete this topic
--- OUTSIDE RECORDS SUMMARY | 2025-01-01 06:39 | XMS_ITS | Continuity of Care Document ---
Author Organization [facility] Address [address] [place] [address] [address] [place] [address] Phone Care Team Providers Care Jewel Hole Driller Name Role Phone Blanco Maria Fernanda ZAVALA Unavailable Unavailable Procedures Procedure Date Progress Note THERAPEUTIC EXERCISES MANUAL THERAPY FUNC ACTIVITY HOT/COLD PACK ELECTRIC STIMULATION UNA THERAPEUTIC EXERCISES MANUAL THERAPY FUNC ACTIVITY HOT/COLD PACK ELECTRIC STIMULATION UNA THERAPEUTIC EXERCISES MANUAL THERAPY FUNC ACTIVITY HOT/COLD PACK ELECTRIC STIMULATION UNATT THERAPEUTIC EXERCISES NEUROMUSCULAR RE-ED MANUAL THERAPY FUNC ACTIVITY THERAPEUTIC EXERCISES NEUROMUSCULAR RE-ED MANUAL THERAPY FUNC ACTIVITY HOT/COLD PACK ELECTRIC STIMULATION UNATT THERAPEUTIC EXERCISES NEUROMUSCULAR RE-ED MANUAL THERAPY FUNC ACTIVITY HOT/COLD PACK ELECTRIC STIMULATION UNATT THERAPEUTIC EXERCISES NEUROMUSCULAR RE-ED MANUAL THERAPY FUNC ACTIVITY HOT/COLD PACK ELECTRIC STIMULATION UNATT THERAPEUTIC EXERCISES NEUROMUSCULAR RE-ED MANUAL THERAPY FUNC ACTIVITY HOT/COLD PACK ELECTRIC STIMULATION UNATT Progress Note THERAPEUTIC EXERCISES NEUROMUSCULAR RE-ED MANUAL THERAPY FUNC ACTIVITY HOT/COLD PACK ELECTRIC STIMULATION UNATT THERAPEUTIC EXERCISES NEUROMUSCULAR RE-ED MANUAL THERAPY FUNC ACTIVITY HOT/COLD PACK ELECTRIC STIMULATION UNATT THERAPEUTIC EXERCISES NEUROMUSCULAR RE-ED MANUAL THERAPY FUNC ACTIVITY HOT/COLD PACK ELECTRIC STIMULATION UNATT THERAPEUTIC EXERCISES NEUROMUSCULAR RE-ED MANUAL THERAPY FUNC ACTIVITY HOT/COLD PACK ELECTRIC STIMULATION UNATT THERAPEUTIC EXERCISES NEUROMUSCULAR RE-ED MANUAL THERAPY FUNC ACTIVITY HOT/COLD PACK ELECTRIC STIMULATION UNATT THERAPEUTIC EXERCISES NEUROMUSCULAR RE-ED MANUAL THERAPY FUNC ACTIVITY HOT/COLD PACK ELECTRIC STIMULATION UNATT THERAPEUTIC EXERCISES NEUROMUSCULAR RE-ED MANUAL THERAPY FUNC ACTIVITY HOT/COLD PACK ELECTRIC STIMULATION UNATT THERAPEUTIC EXERCISES NEUROMUSCULAR RE-ED MANUAL THERAPY FUNC ACTIVITY HOT/COLD PACK ELECTRIC STIMULATION UNATT THERAPEUTIC EXERCISES NEUROMUSCULAR RE-ED MANUAL THERAPY FUNC ACTIVITY HOT/COLD PACK ELECTRIC STIMULATION UNATT THERAPEUTIC EXERCISES NEUROMUSCULAR RE-ED MANUAL THERAPY FUNC ACTIVITY HOT/COLD PACK ELECTRIC STIMULATION UNATT THERAPEUTIC EXERCISES NEUROMUSCULAR RE-ED MANUAL THERAPY FUNC ACTIVITY HOT/COLD PACK ELECTRIC STIMULATION UNATT THERAPEUTIC EXERCISES NEUROMUSCULAR RE-ED MANUAL THERAPY FUNC ACTIVITY HOT/COLD PACK ELECTRIC STIMULATION UNATT THERAPEUTIC EXERCISES NEUROMUSCULAR RE-ED MANUAL THERAPY FUNC ACTIVITY HOT/COLD PACK ELECTRIC STIMULATION UNATT THERAPEUTIC EXERCISES NEUROMUSCULAR RE-ED MANUAL THERAPY FUNC ACTIVITY HOT/COLD PACK ELECTRIC STIMULATION UNATT THERAPEUTIC EXERCISES MANUAL THERAPY FUNC ACTIVITY HOT/COLD PACK ELECTRIC STIMULATION UNATT THERAPEUTIC EXERCISES NEUROMUSCULAR RE-ED MANUAL THERAPY FUNC ACTIVITY THERAPEUTIC EXERCISES NEUROMUSCULAR RE-ED MANUAL THERAPY FUNC ACTIVITY HOT/COLD PACK ELECTRIC STIMULATION UNATT THERAPEUTIC EXERCISES NEUROMUSCULAR RE-ED MANUAL THERAPY FUNC ACTIVITY HOT/COLD PACK ELECTRIC STIMULATION UNATT THERAPEUTIC EXERCISES NEUROMUSCULAR RE-ED MANUAL THERAPY FUNC ACTIVITY HOT/COLD PACK ELECTRIC STIMULATION UNATT THERAPEUTIC EXERCISES MANUAL THERAPY FUNC ACTIVITY HOT/COLD PACK ELECTRIC STIMULATION UNATT THERAPEUTIC EXERCISES MANUAL THERAPY FUNC ACTIVITY HOT/COLD PACK ELECTRIC STIMULATION UNATT THERAPEUTIC EXERCISES MANUAL THERAPY HOT/COLD PACK ELECTRIC STIMULATION UNATT THERAPEUTIC EXERCISES MANUAL THERAPY FUNC ACTIVITY HOT/COLD PACK ELECTRIC STIMULATION UNATT THERAPEUTIC EXERCISES MANUAL THERAPY HOT/COLD PACK ELECTRIC STIMULATION UNATT THERAPEUTIC EXERCISES MANUAL THERAPY HOT/COLD PACK ELECTRIC STIMULATION UNATT THERAPEUTIC EXERCISES MANUAL THERAPY HOT/COLD PACK ELECTRIC STIMULATION UNATT THERAPEUTIC EXERCISES NEUROMUSCULAR RE-ED MANUAL THERAPY FUNC ACTIVITY HOT/COLD PACK ELECTRIC STIMULATION UNA PT RE-EVALUATION THERAPEUTIC EXERCISES NEUROMUSCULAR RE-ED MANUAL THERAPY FUNC ACTIVITY HOT/COLD PACK ELECTRIC STIMULATION UNATT THERAPEUTIC EXERCISES NEUROMUSCULAR RE-ED MANUAL THERAPY FUNC ACTIVITY HOT/COLD PACK ELECTRIC STIMULATION UNATT THERAPEUTIC EXERCISES NEUROMUSCULAR RE-ED MANUAL THERAPY FUNC ACTIVITY HOT/COLD PACK ELECTRIC STIMULATION UNATT THERAPEUTIC EXERCISES NEUROMUSCULAR RE-ED MANUAL THERAPY FUNC ACTIVITY THERAPEUTIC EXERCISES NEUROMUSCULAR RE-ED MANUAL THERAPY FUNC ACTIVITY HOT/COLD PACK ELECTRIC STIMULATION UNATT THERAPEUTIC EXERCISES NEUROMUSCULAR RE-ED MANUAL THERAPY FUNC ACTIVITY HOT/COLD PACK ELECTRIC STIMULATION UNATT PT RE-EVALUATION THERAPEUTIC EXERCISES NEUROMUSCULAR RE-ED MANUAL THERAPY FUNC ACTIVITY HOT/COLD PACK ELECTRIC STIMULATION UNATT THERAPEUTIC EXERCISES NEUROMUSCULAR RE-ED MANUAL THERAPY FUNC ACTIVITY HOT/COLD PACK ELECTRIC STIMULATION UNATT THERAPEUTIC EXERCISES NEUROMUSCULAR RE-ED MANUAL THERAPY FUNC ACTIVITY HOT/COLD PACK ELECTRIC STIMULATION UNA THERAPEUTIC EXERCISES NEUROMUSCULAR RE-ED MANUAL THERAPY FUNC ACTIVITY HOT/COLD PACK ELECTRIC STIMULATION UNA THERAPEUTIC EXERCISES NEUROMUSCULAR RE-ED MANUAL THERAPY FUNC ACTIVITY HOT/COLD PACK ELECTRIC STIMULATION UNA THERAPEUTIC EXERCISES NEUROMUSCULAR RE-ED MANUAL THERAPY FUNC ACTIVITY HOT/COLD PACK ELECTRIC STIMULATION UNA THERAPEUTIC EXERCISES NEUROMUSCULAR RE-ED MANUAL THERAPY FUNC ACTIVITY HOT/COLD PACK ELECTRIC STIMULATION UNA THERAPEUTIC EXERCISES NEUROMUSCULAR RE-ED MANUAL THERAPY FUNC ACTIVITY HOT/COLD PACK ELECTRIC STIMULATION UNATT THERAPEUTIC EXERCISES NEUROMUSCULAR RE-ED MANUAL THERAPY FUNC ACTIVITY HOT/COLD PACK ELECTRIC STIMULATION UNATT THERAPEUTIC EXERCISES MANUAL THERAPY PT EVALUATION THERAPEUTIC EXERCISES MANUAL THERAPY HOT/COLD PACK ELECTRIC STIMULATION UNATT Advance Directives Directive Yes / No Effective Date File Name No Information Encounters Encounter Description Practice Location Reason(s) For Visit Diagnoses Date Provider Providers Copied on Encounter [facility] [address] [address], [place], [place], [id number], tel:[phone] [place] No Information Apr-0 5-201 6 Simeon Maria Fernanda. [address] [place] [address], [address], [facility], . tel:[phone] Referring Provider: Jhoan Hernandez, [address] [place] [address] Office Building [address], [facility]. tel:[phone] [facility] [address] [address], [place], [place], [id number], tel:[phone] [place] No Information Mar-2 4-201 6 Simeon Maria Fernanda. [address] [place] [address], [address], [facility], [place]. tel:[phone] Referring Provider: Jhoan Hernandez, [address] [place] [address] Office Building [address], [facility]. tel:[phone] [facility] [address] [address], [place], [place], [address], tel:[phone] [place] No Information Mar-0 8-201 6 Simeon Maria Fernanda. [address] [facility], [facility] [address], [place], [facility], [place]. tel:[phone] Referring Provider: Jhoan Hernandez [address] [place] [address] Office Building [address], [facility]. tel:[phone] [facility] [address] [facility] [address], [place], [place], [id number], tel:[phone] [place] No Information Mar-0 2-201 6 Stisanchez Asya. [address] [place] [address], [address], [facility], . tel:[phone] Referring Provider: Jhoan Hernandez, [facility] Medical Office Building [address], [address]. tel:[phone], [place], [place], [address], [place] tel:[phone] [place] No Information 5-201 6 Simeon Maria Fernanda. [address] [place] [address], [address], [place], [facility], [place]. tel:[phone] Referring Provider: Jhoan Hernandez, [address] [place] [address] Medical Office Building [address], [address]. tel:[phone] [address], [place], [place], [id number], [place] tel:[phone] [place] No Information 3-201 6 Simeon Maria Fernanda. [address] [place] [address], [address], [facility], [place]. tel:[phone] Referring Provider: Jhoan Hernandez, [address] [place] [address] Medical Office Building [address], [address]. tel:[phone] [place] [address], [place], [place], [id number], [place] tel:[phone] [place] No Information 8-201 6 Simeon Maria Fernanda. [address] [place] [address], [address], [facility], [place]. tel:[phone] Referring Provider: Jhoan Hernandez [facility] Medical Office Building [address], [address]. tel:[phone] [place] [address], [address] [place], [place] [address], [place], [place], [address], tel:[phone] [place] No Information 6-201 6 Simeon Maria Fernanda. [address] [place] [address] [address], [facility], . tel:[phone] Referring Provider: Jhoan Hernandez, [address] [facility] Medical Office Building [address], [address]. tel:[phone] [address], [place], [place], [id number], tel:[phone] [place] No Information 1-201 6 Simeon Maria Fernanda. [address] [place] [address], [address], [facility], [place]. tel:[phone] Referring Provider: Jhoan Hernandez, [facility] Medical Office Building [address], [facility]. tel:[phone] [address], [place], [place], [address], tel:[phone] [place] No Information 9-201 6 Simeon Maria Fernanda. [address] [place] [address], [address], [facility], [place]. tel:[phone] Referring Provider: Jhoan Hernandez, [facility] Medical Office Building [address], [address]. tel:[phone], [id number], tel:[phone] [place] No Information 6 Simeon Maria Fernanda. [address] [place] [address], [address], [facility], [place]. tel:[phone] Referring Provider: Jhoan Hernandez [address] [place] [address] Medical Office Building [address], [address]. tel:[phone], [id number], tel:[phone] [place] No Information 6-201 6 Simeon Maria Fernanda. [address] [place] [address], [address], [facility], . tel:[phone] Referring Provider: Jhoan Hernandez, [address] [facility] Medical Office Building [address], [address]. tel:[phone] [facility], [address] [place] [address], [id number], tel:[phone] [place] No Information 9- 6 Simeon Maria Fernanda. [address] [place] [address], [address] [place] [address], [facility], . tel:[phone] Referring Provider: Jhoan Hernandez, [address] [facility] Medical Office Building [address], [address]. tel:[phone], [id number], tel:[phone] [place] No Information - 6 Simeon Maria Fernanda. [address] [place] [address], [address], [place], [facility], . tel: [phone] Referring Provider: Jhoan Hernandez, [address] [facility] Medical Office Building [address], [address]. tel:[phone], [id number], tel:[phone] [place] No Information 2- 6 Simeon Maria Fernanda. [address] [place] [address], [address] [place] [address], [facility], . tel:[phone] Referring Provider: Jhoan Hernandez, [address] [facility] Medical Office Building [address], [facility]. tel:[phone], [id number], tel:[phone] [place] No Information 7-201 6 Thuet Carlitos. [address] [place] [address], [address], [facility], . tel:[phone] Referring Provider: Jhoan Hernandez, [address] [facility] Medical Office Building [address], [address]. tel:[phone], [id number], tel:[phone] [place] No Information Gregg-0 5-201 6 Simeon Maria Fernanda. [address] [place] [address], [address], [facility], . tel:[phone] Referring Provider: Jhoan Hernandez, [address] [facility] Medical Office Building [address], [address]. tel:[phone], [id number], tel:[phone] [place] No Information Dec-3 1-201 5 Muehl Lauren. [address] [place] [address], [address], [facility], . tel:[phone] Referring Provider: Jhoan Hernandez, [address] [place] [address] Medical Office Building [address], [address]. tel:[phone], [id number], tel:[phone] [place] No Information Dec-3 0-201 5 Simeon Maria Fernanda. [address] [place] [address], [address], [facility], . tel:[phone] Referring Provider: Jhoan Hernandez, [facility] Medical Office Building [address], [address]. tel:[phone], [id number], tel:[phone] [place] No Information Dec-2 8-201 5 Simeon Maria Fernanda. [address] [place] [address], [address], [facility], . tel:[phone] Referring Provider: Jhoan Hernandez, [facility] [place] [address] Medical Office Building [address], [address]. tel:[phone], [id number], tel:[phone] [place] No Information Dec-2 4-201 5 Simeon Maria Fernanda. [address] [place] [address], [address], [facility], . tel:[phone] Referring Provider: Jhoan Hernandez, [address] [place] [address] Medical Office Building [address], [address]. tel:[phone], [id number], [place] tel:[phone] [place] No Information Dec-2 5 Thuet Carlitos. [address] [place] [address], [address], [facility], . tel:[phone] Referring Provider: Jhoan Hernandez, [address] [place] [address] Medical Office Building [address], [address]. tel:[phone], [id number], [place] tel:[phone] [place] No Information Dec-1 6-201 5 Simeon Maria Fernanda. [address] [place] [address], [facility] [address], [place], [facility], . tel:[phone] Referring Provider: Jhoan Hernandez, [address] [place] [address] Medical Office Building [address], [address]. tel:[phone], [id number], [place] tel:[phone] [place] No Information Dec-1 5-201 5 Thuet Carlitos. [address] [place] [address], [address], [facility], . tel:[phone] Referring Provider: Jhoan Hernandez [address] [place] [address] Medical Office Building [address], [address]. tel:[phone], [id number], tel:[phone] [place] No Information Dec-1 4-201 5 Simeon Maria Fernanda. [address] [place] [address], [address], [facility], . tel:[phone] Referring Provider: Jhoan Hernandez, [address] [place] [address] Medical Office Building [address], [facility]. tel:[phone] [address], [place], [place], [id number], tel:[phone] [place] No Information Dec-1 1-201 5 Thuet Carlitos. [address] [place] [address], [address] [place] [address], [facility], . tel:[phone] Referring Provider: Jhoan Hernandez, [address] [place] [address] Medical Office Building [address], [facility]. tel:[phone], [id number], [place] tel:[phone] [place] No Information Dec-1 0-201 5 Luis Sheyla. [address] [place] [address], [address] [place] [address], [facility], . tel:[phone] Referring Provider: Jhoan Hernandez, [address] [place] [address] Medical Office Building [address], [facility]. tel:[phone], [id number], [place] tel:[phone] [place] No Information Dec-0 9-201 5 Simeon Maria Fernanda. [address] [place] [address], [address], [place], [facility], . tel:[phone] Referring Provider: Jhoan Hernandez [address] [place] [address] Medical Office Building [address], [address]. tel:[phone] [facility], [address] [facility] [address] [place] [address], [id number], tel:[phone] [place] No Information Dec-0 8-201 5 Thuet Carlitos. [address] [place] [address], [address], [place], [facility], . tel:[phone] Referring Provider: Jhoan Hernandez, [address] [place] [address] Medical Office Building [address], [facility]. tel:[phone] [facility] [address] [place], [place] [address]e [facility], [place], [place], [id number], tel:[phone] [place] No Information Dec-0 7-201 5 Simeon Maria Fernanda. [address] [place] [address], [address], [facility], . tel:[phone] Referring Provider: Jhoan Hernandez, [address] [place] [address] Medical Office Building [address], [facility]. tel:[phone] [facility] [address], [id number], tel:[phone] [place] No Information Dec-0 4-201 5 Thuet Carlitos. [address] [place] [address], [address], [facility], . tel:[phone] Referring Provider: Jhoan Hernandez, [address] [place] [address] Medical Office Building [address], [facility]. tel:[phone] [facility] [address], [id number], tel:[phone] [place] No Information Dec-0 3-201 5 Simeon Maria Fernanda. [address] [place] [address], [facility] [address], [place], [facility], . tel:[phone] Referring Provider: hJoan Hernandez, [address] [place] [address] Medical Office Building [address], [facility]. tel:[phone] [facility] [address], [id number], tel:[phone] [place] No Information Dec-0 2-201 5 Simeon Maria Fernanda. [address] [place] [address], [address], [facility], . tel: [phone] Referring Provider: Jhoan Hernandez, [address] [place] [address] Medical Office Building [address], [facility]. tel:[phone], [place], [place], [id number], tel:[phone] [place] No Information Dec-0 1-201 5 Thuet Carlitos. [address] [place] [address], [address] [address], . tel: [phone] Referring Provider: Jhoan Hernandez, [address] [place] [address] Medical Office Building [address], [facility]. tel:[phone] [address], [place], [place], [id number], tel:[phone] [place] No Information Nov-3 0-201 5 Simeon Maria Fernanda. [address] [place] [address], [address], [facility], . tel: [phone] Referring Provider: Jhoan Hernandez, [address] [place] [address] Medical Office Building [address], [facility]. tel:[phone], [place], [place], [id number], tel:[phone] [place] No Information Nov-1 8-201 5 Simeon Maria Fernanda. [address] [place] [address], [address], [facility], . tel: [phone] Referring Provider: Jhoan Hernandez, [address] [place] [address] Medical Office Building [address], [facility]. tel:[phone] [address], [place], [place], [id number], tel:[phone] [place] No Information 7-201 5 Thuet Carlitos. [address] [place] [address], [address], [place], [address], [place]. [phone] Referring Provider: Jhoan Hernandez, [facility] Medical Office Building [address], [address]. tel:[phone] [facility] [address] [address], [place], [place], [id number], [place] tel:[phone] [place] No Information 6-201 5 Simeon Maria Fernanda. [address] [place] [address], [address], [address], [place]. tel:[phone] Referring Provider: Jhoan Hernandez, [address] [place] [address] Medical Office Building [address], [address]. tel:[phone] [facility], [address] [address], [place], [place], [id number], [place] tel:[phone] [place] No Information 3-201 5 Thuet Carlitos. [address] [place] [address], [address], [place], [address], [place]. tel:[phone] Referring Provider: Jhoan Hernandez, [address] [place] [address] Medical Office Building [address], [address]. tel:[phone] [facility] [address] [address], [place], [place], [id number], [place] tel:[phone] [place] No Information 1 2-201 5 Simeon Maria Fernanda. [address] [place] [address], [address], [place], [address], [place]. [phone] Referring Provider: Jhoan Hernandez [address] [place] [address] Medical Office Building [address], [address]. tel:[phone] [facility], [address] [facility], [place], [id number], tel:[phone] [place] No Information Nov-0 9-201 5 Simeon Maria Fernanda. [address] [place] [address], [address], [place], [facility], . tel:[phone] Referring Provider: Jhoan Hernandez, [address] [facility] Medical Office Building [address], [address]. tel:[phone], [id number], [place] tel:[phone] [place] No Information Nov-0 5-201 5 Simeon Maria Fernanda. [address] [place] [address], [address], [place], [facility], [place]. [phone] Referring Provider: Gabriele Gill4 [facility] Medical Office Building [address], [address]. tel:[phone], [id number], [place] tel:[phone] [place] No Information Nov-0 4-201 5 Simeon Maria Fernanda. [address] [place] [address], [address], [place], [facility], [place]. [phone] Referring Provider: Gabriele Gill4 [facility] Medical Office Building [address], [address]. tel:[phone], [id number], [place] tel:[phone] [place] No Information Nov-0 2-201 5 Simeon Maria Fernanda. [address] [place] [address], [address], [place], [facility], [place]. [phone] Referring Provider: Jhoan Hernandez [facility] Medical Office Building [address], [address]. tel:[phone] [place] [address], [address] [place] [address], [id number], [place] tel:[phone] [place] No Information Oct-3 0-201 5 Simeon Maria Fernanda. [address] [place] [address], [address], [place], [facility], . tel:[phone] Referring Provider: Jhoan Hernandez, [address] [facility] [address], [facility]. tel:[phone], [id number], tel:[phone] [place] No Information Oct-2 8-201 5 Mary Meier. [address] [place] [address], [address] [place] [address], [facility], . tel:[phone] Referring Provider: Jhoan Hernandez, [facility]4 [facility] [address], [facility]. tel:[phone], [id number], tel:[phone] [place] No Information Oct-2 6-201 5 Blanco Irving. [address] [place] [address], [address] [place] [address], [facility], . tel:[phone] Referring Provider: Jhoan Hernandez, [facility]4 [facility] [address], [facility]. tel:[phone] [place] [address], [id number], tel:[phone] [place] No Information Oct-2 3-201 5 Blanco Irving. [address] [place] [address], [facility] [address], [place], [facility], . tel:[phone] Referring Provider: Jhoan Hernandez, [address] [place] [address] Medical Office Building [address], [facility]. tel:[phone], [id number], tel:[phone] [place] No Information Oct-2 1-201 5 Mary Meier. [address] [place] [address], [address], [place], [facility], . tel:[phone] Referring Provider: Jhoan Hernandez, [address] [facility] [address] [place] [address], [address]. tel:[phone], [id number], tel:[phone] [place] No Information 5 Mary Meier. [address] [place] [address], [address], [facility], [place]. [phone] Referring Provider: Jhoan Hernandez, [address] [place] [address] Medical Office Building [address], [facility]. tel:[phone], [id number], tel:[phone] [place] No Information 5 Mary Meier. [address] [place] [address], [address], [facility], [place]. [phone] Referring Provider: Jhoan Hernandez, [address] [place] [address] Medical Office Building [address], [facility]. tel:[phone], [id number], [place] tel:[phone] [place] Pain in left kneeStiffness of left knee, not elsewhere classifiedMuscle wasting and atrophy, NEC, left thighDifficulty in walking, not elsewhere classifiedPresence of left artificial knee jointAftercare following joint replacement surgery 5 Blanco Irving. [address] [place] [address], [address], [place], [facility], [place]. [phone] Referring Provider: Jhoan Hernandez [facility]4 [facility] [address], [facility]. tel:[phone] Family History Family Member Type Diagnosis Age At Onset No Information Payers Payer name Insurance type Covered republican ID Authoriza tikellen(s) [facility] [id number] [place] 201 6 Social History Type Description Quantity Date Captured Comments Sex Male Smoking Status No Information Chief Complaint And Reason For Visit No Information Reason For Referral Reason For Referral No Information History Of Present Illness Encounter Date Complaint History Of Prese nt Illness No Information Functional Status Date Functional Assessmen t No Information Instructions Date Instruction Additional Infor mation No Information Assessments Type Assessment Date No Information Patient Care Teams Name Effective Dates (start - stop) Status Members No Information
--- OUTSIDE RECORDS SUMMARY | 2025-01-01 06:39 | XMS_ITS | Clinical Summary ---
Author Organization [facility] Address Counts include [address] beds at the [facility] [place] [address] Care Team Providers Care Assistant Financial Accountant Name Role Phone Marty Morales MD Primary Care Provider [phone] Allergies No known active allergies Medications atorvastatin 20 MG tablet Take 20 mg by mouth daily. Active NIFEdipine 30 MG 24 hr tablet Take 30 mg by mouth daily. Active pantoprazole EC 40 MG tablet Take 40 mg by mouth daily. 0 Active diclofenac sodium (VOLTAREN ARTHRITIS PAIN) 1 % gel Apply 4 g topically 4 (four) times daily. 150 g 4 Active Social History Tobacco Use Types Packs/Day Years Used Date Smoking Tobacco: Some Days Cigarettes Smokeless Tobacco: Never Tobacco Cessation:Ready to Q uit: Not Asked Alcohol Use Standard Drinks/Week Comments Yes 0 (1 standard drink = 0.6 oz pur e alcohol) reports liquor every other day Sex and Gender Information Value Date Recorded Sex Assigned at Not on file Legal Sex Male 7:05 PM CDT Gender Identity Not on file Sexual Orientation Not on file Last Filed Vital Signs Vital Sign Reading Time Taken Comments Blood Pressure 177/63 02/02/2024 7:46 AM CDT Pulse 70 02/02/2024 7:46 AM CDT Temperature 36.4 C (97.5 F) 02/02/2024 7:46 AM CDT Respiratory Rate 18 02/02/2024 7:46 AM CDT Oxygen Saturation 98% 02/02/2024 7:46 AM CDT Inhaled Oxygen Concentration - - Weight 102.5 kg (225 lb 15.5 oz) 02/02/2024 7:46 AM CDT Height 180.3 cm (5' 11 ) 02/02/2024 7:46 AM CDT Body Mass Index 31.52 02/02/2024 7:46 AM CDT Plan of Treatment Health Maintenance Due Date Last Done Comments Colorectal Cancer Screening Colonoscopy (10 Years) 1963 Annual Physical 1966 Pneumococcal Vaccine: Pediatrics (0 to 5 Years) and At-Risk Patients (6 to 64 Years) (1 of 2 - PCV) 1969 Hepatitis C 1981 DTaP, Tdap and Td Vaccines (1 - Tdap) 1982 Zoster Vaccines (1 of 2) 2013 COVID-19 Vaccine (4 - season) 2024 11/04/2021, 02/08/2021, 01/18/2021 Influenza Adult (#1) 2024 08/07/2023, 08/22/2022, 07/27/2020, Additional history exists RSV Immunization or 60+ Years (1 - 1-dose 75+ series) 2038 Meningococcal B Vaccine Aged Out No l onger eligible based on patient's age to complete this topic Meningococcal Vaccine Aged Out No emmanuel jahaira eligible based on patient's age to complete this topic RSV Immunizations Under 20 Months Aged Out No longer eligible based on patient's age to complete this topic Insurance Care Teams Assistant Financial Accountant Relationship Specialty Start Date End Date Marty Morales MD [address] [place] [address] PCP - General INTERNAL MEDICINE 06/06/18
--- OUTSIDE RECORDS SUMMARY | 2025-01-01 06:39 | XMS_ITS | Patient Health Summary ---
Author Organization [facility] [email or web address] Address [address] [place] [address] Care Team Providers Care Dimension Warehouse Supervisor Name Role Phone Marty Morales MD Primary Care Provider [phone] Note from [facility],non-owned Affiliates and Associated Physician Practices is amultiple site organization consisting of ambulatory clinics and hospital sitesin [place], [place], [place] and [place]. This disclosure is being madepursuant to the Care Everywhere program and may not contain all information available regarding this patient. Last updated 18.[facility] [email or web address] Allergies No known active allergies Medications * Be aware that medications may not be up to date on this document. Alwaysverify current medications with the patient. * FLEXERIL PO Take by mouth. * CRESTOR PO Take by mouth. * ETODOLAC PO Take by mouth. * FISH OIL PO Take by mouth. * diazepam (VALIUM) 5 MG tablet(Started 06/09/2010) Take 1 Tab by mouth 3 times daily as needed for Anxiety. * diclofenac sodium (VOLTAREN) 75 MG tablet(Started 06/09/2010) Take 1 Tab by mouth 2 times daily. 4 refills left Active Problems Problem Noted Date Diagnosed Date [...] Mass Index 27.2 06/09/2010 2:40 PM CDT Care Teams Dimension Warehouse Supervisor Relationship Specialty Start Date End Date Marty Morales MD PCP - General 09/21/18
--- OUTSIDE RECORDS SUMMARY | 2025-01-01 06:39 | XMS_ITS | Referral Summary ---
Author Organization [facility] Address [address] [place] [address] Care Team Providers Care Charge Auditor Name Role Phone Marty Morales MD Primary Care Provider [phone] Source Comments [facility] [email or web address],non-owned Affiliates and Associated Physician Practices is amultiple site organization consisting of ambulatory clinics and hospital sitesin [place], [place], [place] and [place]. This disclosure is being madepursuant to the Care Everywhere program and may not contain all information available regarding this patient. Last updated 18.[facility] [email or web address] Allergies No known active allergies Medications * [...] 06/09/2010 2:40 PM CDT Plan of Treatment Not on file Care Teams Charge Auditor Relationship Specialty Start Date End Date Marty Morales MD PCP - General 09/21/18
--- OUTSIDE RECORDS SUMMARY | 2025-01-01 06:39 | XMS_ITS | Data Portability ---
Author Organization [place] [facility] [employer], Main Office Address [address] [place] [address] Care Team Providers Care Christian Counselor Name Role Phone DEZ MORALES Primary Care Provider DEZ MORALES Referring Provider Assessment Encounter Date Assessment Date Assessment LastModified by Organization Details LastModified Time 07/13/2023 07/13/2023 Blood wor follow-up in 6 months appointment good blood pressure control k and urine urolog [email or web address] Not available 07/13/2023 22:28:14 Plan of Treatment Reminders Order Date Submit Date Provider Last Modified By Organization Details Last Modified Time Details Appointments None recorded. Lab PSA, serum or plasma [email or web address] [place] [address] (Lab), [address] [place], [address], 4 18:20:35 lipid panel, serum 2022 023 [facility] (Lab), [address] [place], [address], 3 18:41:54 CBC w/ auto diff 2022 023 [facility] (Lab), [address] [place], [address], 3 17:58:44 CMP, serum or plasma 2022 023 [facility] (Lab), [address] [place], [address], 18:41:59 urinalysis, microscopic 2022 023 cyahl [facility] (Lab), [address] [place], [address], 4 08:54:35 Referral None recorded. Procedures None recorded. Surgeries None recorded. Imaging None recorded. Medication Orders None recorded. Patient TargetsNo targets recorded. Patient InstructionsNo instructions recorded. Reason for Referral None Reported. Results Created Date Observation Date Name Description Value Unit Range Abnormal Flag Note LastModifiedBy Organization Detail LastModifiedTime 07/13/2007/13/2023 CBC/C OMPLE TE BLD COUNT W/DIF F white blood cells 6.7 x10'3 /uL 4.2-10 .8 Not Available [facility] (Lab) [address] [place], [address], 07/13/2023 17:58:44 07/13/2007/13/2023 CBC/C OMPLE TE BLD COUNT W/DIF F red blood cells 4.37 x10'6 /uL 4.10-5 .80 Not Available [facility] (Lab) [address] [place], [address], 07/13/2023 17:58:44 07/13/20 23 07/13/2023 CBC/C OMPLE TE BLD COUNT W/DIF F hemoglobin 13.1 g/dL 13.2-1 7.0 low Not Available [facility] (Lab) [address] [place], [address], 07/13/2023 17:58:44 07/13/2007/13/2023 CBC/C OMPLE TE BLD COUNT W/DIF F hematocrit 40.9 % 39.3-5 0.0 Not Available [facility] (Lab) [address] [place], [address], 07/13/2023 17:58:44 07/13/20 23 07/13/2023 CBC/C OMPLE TE BLD COUNT W/DIF F mean red cell volume 93.6 fL 80.0-9 7.0 Not Available [facility] (Lab) [address] [place], [address], 07/13/2023 17:58:44 07/13/20 23 07/13/2023 CBC/C OMPLE TE BLD COUNT W/DIF F mean red cell hemoglobin 30.0 pg 27.0-3 3.0 Not Available [facility] (Lab) [address] [place], [address], 07/13/2023 17:58:44 07/13/20 23 07/13/2023 CBC/C OMPLE TE BLD COUNT W/DIF F mean RBC HGB concentratio n 32.0 g/dL 31.0-3 6.0 Not Available [facility] (Lab) [address] [place], [address], 07/13/2023 17:58:44 07/13/20 23 07/13/2023 CBC/C OMPLE TE BLD COUNT W/DIF F red cell distribution width 13.2 % 11.8-1 5.5 Not Available [facility] (Lab) [address] [place], [address], 07/13/2023 17:58:44 07/13/20 23 07/13/2023 CBC/C OMPLE TE BLD COUNT W/DIF F platelets 370 x10'3 /uL 150-40 0 Not Available [facility] (Lab) [address] [place], [address], 07/13/2023 17:58:44 07/13/20 23 07/13/2023 CBC/C OMPLE TE BLD COUNT W/DIF F mean platelet volume 9.8 fL 9.0-12 .4 Not Available [facility] (Lab) [address] [place], [address], 07/13/2023 17:58:44 07/13/20 23 07/13/2023 CBC/C OMPLE TE BLD COUNT W/DIF F neutrophils 76.1 % 39.0-7 2.0 high Not Available [facility] (Lab) [address] [place], [address], 07/13/2023 17:58:44 07/13/2007/13/2023 CBC/C OMPLE TE BLD COUNT W/DIF F lymphocytes 15.8 % 16.0-4 7.0 low Not Available [facility] (Lab) [address] [place], [address], 07/13/2023 17:58:44 07/13/2007/13/2023 CBC/C OMPLE TE BLD COUNT W/DIF F monocytes 5.6 % 5.0-12 .0 Not Available [facility] (Lab) [address] [place], [address], 07/13/2023 17:58:44 07/13/2007/13/2023 CBC/C OMPLE TE BLD COUNT W/DIF F eosinophils 1.5 % 1.0-7. 0 Not Available [facility] (Lab) [address] [place], [address], 07/13/2023 17:58:44 07/13/2007/13/2023 CBC/C OMPLE TE BLD COUNT W/DIF F basophils 0.5 % 0.0-2. 0 Not Available [facility] (Lab) [address] [place], [address], 07/13/2023 17:58:44 07/13/2007/13/2023 CBC/C OMPLE TE BLD COUNT W/DIF F immature granulocytes 0.5 % 0.00-0 .50 Not Available [facility] (Lab) [address] [place], [address], 07/13/2023 17:58:44 07/13/20 23 07/13/2023 CBC/C OMPLE TE BLD COUNT W/DIF F neutrophils, absolute count 5.08 x10'3 /uL 1.5-8. 0 Not Available [facility] (Lab) [address] [place], [address], 07/13/2023 17:58:44 07/13/20 23 07/13/2023 CBC/C OMPLE TE BLD COUNT W/DIF F lymphocytes, absolute count 1.05 x10'3 /uL 1.07-3 .43 low Not Available [facility] (Lab) [address] [place], [address], 07/13/2023 17:58:44 07/13/20 23 07/13/2023 CBC/C OMPLE TE BLD COUNT W/DIF F monocytes, absolute count 0.37 x10'3 /uL 0.29-0 .99 Not Available [facility] (Lab) [address] [place], [address], 07/13/2023 17:58:44 07/13/2007/13/2023 CBC/C OMPLE TE BLD COUNT W/DIF F eosinophils, absolute count 0.10 x10'3 /uL 0.02-0 .53 Not Available [facility] (Lab) [address] [place], [address], 07/13/2023 17:58:44 07/13/2007/13/2023 CBC/C OMPLE TE BLD COUNT W/DIF F basophils, absolute count 0.03 x10'3 /uL 0.01-0 .08 Not Available [facility] (Lab) [address] [place], [address], 07/13/2023 17:58:44 07/13/20 23 07/13/2023 CBC/C OMPLE TE BLD COUNT W/DIF F immature granulocytes ,absolute 0.03 x10'3 /uL 0.00-0 .05 Not Available [facility] (Lab) [address] [place], [address], 07/13/2023 17:58:44 07/13/2007/13/2023 CBC/C OMPLE TE BLD COUNT W/DIF F nucleated red blood cells 0.0 % -0 Not Available [facility] (Lab) [address] [place], [address], 07/13/2023 17:58:44 07/13/20 23 07/13/2023 CBC/C OMPLE TE BLD COUNT W/DIF F NRBC# 0.00 x10'3 /uL Not Available [facility] (Lab) [address] [place], [address], 07/13/2023 17:58:44 07/13/2007/13/2023 URINA LYSIS COMPL ETE, IRIS color YELLOW Not Available [facility] (Lab) [address] [place], [address], 07/13/2023 18:19:46 07/13/2007/13/2023 URINA LYSIS COMPL ETE, IRIS appear TURBID abnormal Not Available [facility] (Lab) [address] [place], [address], 07/13/2023 18:19:46 07/13/2007/13/2023 URINA LYSIS COMPL ETE, IRIS specific gravity 1.022 1.001- 1.030 Not Available [facility] (Lab) [address] [place], [address], 07/13/2023 18:19:46 07/13/2007/13/2023 URINA LYSIS COMPL ETE, IRIS pH 5.0 pH_un its 5.0-9. 0 Not Available [facility] (Lab) [address] [place], [address], 07/13/2023 18:19:46 07/13/20 23 07/13/2023 URINA LYSIS COMPL ETE, IRIS leukocytes NEGATI VE moe/u L negati ve- Not Available [facility] (Lab) [address] [place], [address], 07/13/2023 18:19:46 07/13/20 23 07/13/2023 URINA LYSIS COMPL ETE, IRIS nitrite NEGATI VE negati ve- Not Available [facility] (Lab) [address] [place], [address], 07/13/2023 18:19:46 07/13/20 23 07/13/2023 URINA LYSIS COMPL ETE, IRIS protein 50 mg/dL negati ve- abnormal Not Available [facility] (Lab) [address] [place], [address], 07/13/2023 18:19:46 07/13/20 23 07/13/2023 URINA LYSIS COMPL ETE, IRIS glucose NORMAL mg/dL normal - Not Available [facility] (Lab) [address] [place], [address], 07/13/2023 18:19:46 07/13/20 23 07/13/2023 URINA LYSIS COMPL ETE, IRIS ketones NEGATI VE mg/dL negati ve- Not Available [facility] (Lab) [address] [place], [address], 07/13/2023 18:19:46 07/13/20 23 07/13/2023 URINA LYSIS COMPL ETE, IRIS urobilinogen NORMAL mg/dL normal - Not Available [facility] (Lab) [address] [place], [address], 07/13/2023 18:19:46 07/13/20 23 07/13/2023 URINA LYSIS COMPL ETE, IRIS bilirubin NEGATI VE mg/dL negati ve- Not Available [facility] (Lab) [address] [place], [address], 07/13/2023 18:19:46 07/13/2007/13/2023 URINA LYSIS COMPL ETE, IRIS blood >/=1.0 mg/dL negati ve- abnormal Not Available [facility] (Lab) [address] [place], [address], 07/13/2023 18:19:46 07/13/20 23 07/13/2023 URINA LYSIS COMPL ETE, IRIS white blood cells NONE /i??h pfi?? 0-8 Not Available [facility] (Lab) [address] [facility] [place], [address], 07/13/2023 18:19:46 07/13/20 23 07/13/2023 URINA LYSIS COMPL ETE, IRIS red blood cells PACKED /i??h pfi?? 0-4 abnormal Not Available [facility] (Lab) [address] [facility] [place], [address], 07/13/2023 18:19:46 07/13/20 23 07/13/2023 URINA LYSIS COMPL ETE, IRIS bacteria OCCASI ONAL abnormal Not Available [facility] (Lab) [address] [place], [address], 07/13/2023 18:19:46 07/13/20 23 07/13/2023 URINA LYSIS COMPL ETE, IRIS mucous OCCASI ONAL /i??l pfi?? abnormal Not Available [facility] (Lab) [address] [place], [address], 07/13/2023 18:19:46 07/13/20 23 07/13/2023 URINA LYSIS COMPL ETE, IRIS squamous epithelial OCCASI ONAL /i??l pfi?? abnormal Not Available [facility] (Lab) [address] [place], [address], 07/13/2023 18:19:46 07/13/20 23 07/13/2023 LIPID PANEL cholesterol 153 mg/dL 140-19 9 NIH ROVERTO NSUS RECOM MENDA TION FOR LALO STERO L: ADULT CHILD LOW RISK: <200 <170 BORDE RLINE : <200- 239 ----- HIGH RISK: >240 >200 Not Available [facility] (Lab) [address] [place], [address], 07/13/2023 18:41:54 07/13/20 23 07/13/2023 LIPID PANEL triglyceride s 169 mg/dL 0-150 high NIH ROVERTO NSUS REPOR T RECOM MENDA TION FOR TRIGL YCERI SHANIA: ADULT CHILD LOW RISK: <150 ----- BODER LINE: 150-1 99 ----- HIGH RISK: >200 ----- Not Available [facility] (Lab) [address] [place], [address], 07/13/2023 18:41:54 07/13/20 23 07/13/2023 LIPID PANEL HDL cholesterol 36 mg/dL 40- low Not Available [facility] (Lab) [address] [place], [address], 07/13/2023 18:41:54 07/13/20 23 07/13/2023 LIPID PANEL LDL cholesterol, calculated 83 mg/dL 0-130 NIH ROVERTO NSUS REPOR T RECOM MENDA TIONS FOR LDL: ADULT CHILD LOW RISK <130 <110 (OPTI MAL LDL) <100 ----- BORDE RLINE : 130-1 59 ----- HIGH RISK: >160 >130 A TRIGL YCERI DE RESUL T >400 INVAL IDATE S THE CALCU LATIO N FOR LDL FRACT IONAT ION - THE LDL RESUL T WILL NOT BE REPOR CLINT. Not Available [facility] (Lab) [address] [place], [address], 07/13/2023 18:41:54 07/13/20 23 07/13/2023 COMPR EHENS LOGAN METAB OLIC PANEL sodium 141 mmol/ L 137-14 5 Not Available [facility] (Lab) [address] [place], [address], 07/13/2023 18:41:59 07/13/20 23 07/13/2023 COMPR EHENS LOGAN METAB OLIC PANEL potassium 4.4 mmol/ L 3.5-5. 1 Not Available [facility] (Lab) [address] [place], [address], 07/13/2023 18:41:59 07/13/20 23 07/13/2023 COMPR EHENS LOGAN METAB OLIC PANEL chloride 104 mmol/ L 98-107 Not Available [facility] (Lab) [address] [place], [address], 07/13/2023 18:41:59 07/13/20 23 07/13/2023 COMPR EHENS LOGAN METAB OLIC PANEL carbon dioxide 28 mmol/ L 22-30 Not Available [facility] (Lab) [address] [place], [address], 07/13/2023 18:41:59 07/13/20 23 07/13/2023 COMPR EHENS LOGAN METAB OLIC PANEL anion gap 13.4 mmol/ L 14-22 low Not Available [facility] (Lab) [address] [place], [address], 07/13/2023 18:41:59 07/13/20 23 07/13/2023 COMPR EHENS LOGAN METAB OLIC PANEL glucose 113 mg/dL 70-99 high Not Available [facility] (Lab) [address] [place], [address], 07/13/2023 18:41:59 07/13/20 23 07/13/2023 COMPR EHENS LOGAN METAB OLIC PANEL BUN 22 mg/dL 8-19 high Not Available [facility] (Lab) [address] [place], [address], 07/13/2023 18:41:59 07/13/2007/13/2023 COMPR EHENS LOGAN METAB OLIC PANEL creatinine 0.91 mg/dL 0.66-1 .25 Not Available [facility] (Lab) [address] [place], [address], 07/13/2023 18:41:59 07/13/20 23 07/13/2023 COMPR EHENS LOGAN METAB OLIC PANEL GFR >60 Refer ence Range : Eola ge GFR Healt hy Adult : >60 mL/mi n/1.7 3 m2 Chron ic Kidne y Disea se: 15-60 mL/mi n/1.7 3 m2 Kidne y Failu re: <15/m L/min /1.73 m2 www.n iddk. nih.g ov The MDRD study equat ion has not been valid ated in child harriet <18 years of age; pregn ant women ; the elder ly >85 years of age; or in some racia l or ethni c subgr oups, such as Hisid nics. Outsi de the valid ated breana eters , estim ated GFR is less accur ate, requi ring clini janak judgm ent on a case- by-ca se basis . Clini janak inter preta tion for other races and ages must be made by the clini moisés. The MDRD study equat ion has not been valid ated for the evalu ation of serum creat inine relat ed to nutri aleyda l statu s or medic ation usage . For perso ns <18 years of age, a pedia tric GFR calcu lator is avail able on the [facility] websi te: https ://floresita w.kid joe.o rg/pr ofess ional s/kdo qi/gf r_cal culat or Not Available [facility] (Lab) [address] [place], [address], 07/13/2023 18:41:59 07/13/2007/13/2023 COMPR EHENS LOGAN METAB OLIC PANEL alkaline phosphatase 97 U/L 38-126 Not Available [facility] (Lab) [address] [place], [address], 07/13/2023 18:41:59 07/13/20 23 07/13/2023 COMPR EHENS LOGAN METAB OLIC PANEL alanine aminotransfe rase 37 U/L 0-50 Not Available [facility] (Lab) [address] [place], [address], 07/13/2023 18:41:59 07/13/20 23 07/13/2023 COMPR EHENS LOGAN METAB OLIC PANEL aspartate aminotransfe rase 42 U/L 15-46 Not Available [facility] (Lab) [address] [place], [address], 07/13/2023 18:41:59 07/13/20 23 07/13/2023 COMPR EHENS LOGAN METAB OLIC PANEL bilirubin, total 0.40 mg/dL 0.20-1 .30 Not Available [facility] (Lab) [address] [place], [address], 07/13/2023 18:41:59 07/13/20 23 07/13/2023 COMPR EHENS LOGAN METAB OLIC PANEL calcium 9.3 mg/dL 8.4-10 .2 Not Available [facility] (Lab) [address] [place], [address], 07/13/2023 18:41:59 07/13/2007/13/2023 COMPR EHENS LOGAN METAB OLIC PANEL total protein 7.3 g/dL 6.3-8. 2 Not Available [facility] (Lab) [address] [place], [address], 07/13/2023 18:41:59 07/13/20 23 07/13/2023 COMPR EHENS LOGAN METAB OLIC PANEL albumin 4.4 g/dL 3.4-5. 0 Not Available [facility] (Lab) [address] [place], [address], 07/13/2023 18:41:59 07/13/20 23 07/13/2023 COMPR EHENS LOGAN METAB OLIC PANEL globulin 2.9 g/dL 2.6-4. 2 Not Available [facility] (Lab) [address] [place], [address], 07/13/2023 18:41:59 07/13/20 23 07/13/2023 COMPR EHENS LOGAN METAB OLIC PANEL A/G ratio 1.5 ratio 1.0-2. 0 Not Available [facility] (Lab) [address] [place], [address], 07/13/2023 18:41:59 07/13/20 23 07/13/2023 PSA SCREE N PSA medicare screen 1.54 NG/mL 0.00-4 .00 Not Available [facility] (Lab) [address] [place], [address], 07/13/2023 18:57:49 04/02/20 22 04/08/2022 elect sonia mitchellgr am No observ ation record ed. [id number] [facility] Internal Med [address] [facility], [facility], [place], [address], 01/06/2023 01:59:39 09/06/20 23 09/06/2023 XR, kidne y + urete r + bladd er No observ ation record ed. [email or web address] [address] [place] [address], [address], 10/09/2023 11:18:18 01/25/20 24 01/25/2024 XR, kidne y + urete r + bladd er No observ ation record ed. [email or web address] [address], [address], 04/27/2024 10:39:17 Result Notes None recorded. Problems Name Problem SNOMED Code Status Onset Date Resolution Date Notes Provider Name and Address Organization Details Recorded Time Bilateral carpal tunnel syndrome [id number] Active 2019 Not Available [facility] 3 04:18:10 Osteoarth ritis of knee 984841789 Active Not Available [facility] 3 04:18:10 Gastroeso phageal reflux disease without esophagit is 539858744 Active 2019 Not Available [facility] 3 04:18:10 Eruption 817379409 Completed Not Available [facility] 3 01:34:15 Incised wound 971399495 Completed Not Available [facility] 3 01:34:15 Chest pain 09769761 Active 2021 Not Available [facility] 3 04:18:10 Dyslipide yimi 241223486 Active Not Available [facility] 3 04:18:10 Osteoarth ritis 786912024 Active Not Available [facility] 3 04:18:10 Dysphagia 02106100 Completed Not Available [facility] 3 01:34:16 Hyperlipi demia 23763737 Active Not Available [facility] 3 04:18:10 Essential hypertens ion 24006959 Active 2018 Not Available [facility] 3 04:18:10 Herpes simplex 65590421 Completed Not Available [facility] 3 01:34:16 Pain in limb 39771548 Completed Not Available [facility] 3 01:34:16 Jimmy hematuria 345373117 Active 2022 Not Available [facility] 3 04:18:10 Acute sinusitis 01502208 Active 2022 ANGELA Bryant Natanael [facility] 3 15:29:24 Problem Notes None recorded. Procedures Surgical History Date Name Laterality Status Provider Name and Address Organization Details Recorded Time 05/30/20 21 total knee replacement completed Not Available [facility] 01/06/2023 01:18:24 09/08/20 colonoscopy completed Not Available [facility] 01/07/20 23 01:18:24 Shoulder joint surgery completed Not Available [facility] 01/06/2023 01:18:24 Knee completed Not Available [facility] 11/2022 01:18:24 Imaging Results Imaging Date Name Status LastModified by Organization Details LastModified Time 04/08/2022 electrocardiogram completed [id number]. [id number] Internal [facility] [address] [facility] [address], [place], [address], 01/06/2023 01:59:39 09/06/2023 XR, kidney + ureter + bladder completed [email or web address] [address], [place], [address], 10/09/2023 11:18:18 01/25/2024 XR, kidney + ureter + bladder completed [email or web address] [address], [place], [address], 04/27/2024 10:39:17 Procedure Notes None recorded. Medical Equipment None Reported. Allergies No known drug allergies Medications Name Sig Start Date Stop Date Status Note LastModified by Organization Details LastModified Time nifedipine ER 30 mg tablet,exte nded release 24 hr TAKE 1 TABLET BY MOUTH EVERY DAY active Not Available Not Available No t Available celecoxib 200 mg capsule Take 1 capsule twice a day by oral route. 07/11 completed Not Available Not Available Not Available amoxicillin 500 mg capsule 06/26 completed Not Available Not Available Not Available prednisone 10 mg tablet 12/18 completed Not Available Not Available Not Available atorvastati n 20 mg tablet TAKE 1 TABLET BY MOUTH EVERY DAY active Not Available Not Available No t Available polyethylen e glycol 3350 17 gram oral powder packet 05/26 completed Not Available Not Available Not Available azithromyci n 250 mg tablet TAKE 2 TABLETS BY MOUTH TODAY, THEN TAKE 1 TABLET DAILY FOR 4 DAYS DIRECTED active Not Available Not Available No t Available ibuprofen 800 mg tablet TAKE ONE TABLET BY MOUTH THREE TIMES A DAY WITH FOOD 07/13 completed Not Available Not Available Not Available fluconazole 150 mg tablet 08/21 completed Not Available Not Available Not Available benzonatate 200 mg capsule Take 1 capsule 3 times a day by oral route for 7 days. active Not Available Not Available No t Available hydrocodone 5 mg-acetamin ophen 325 mg tablet TAKE 1 2 TABLETS BY MOUTH EVERY 6 (SIX) HOURS NEEDED. INDICATIO NS ACUTE PAIN 7 DAY SUPPLY active Not Available Not Available No t Available metronidazo le 500 mg tablet Take 1 tablet 3 times a day by oral route. 01/07 completed Not Available Not Available Not Available nifedipine ER 30 mg tablet,exte nded release Take 1 tablet every day by oral route. 09/27 completed Not Available Not Available Not Available allopurinol 100 mg tablet TAKE 2 TABLETS BY MOUTH EVERY DAY 11/06 completed Not Available Not Available Not Available valacyclovi r 500 mg tablet TAKE 1 TABLET BY MOUTH TWICE A DAY FOR 7 DAYS 06/11 completed Not Available Not Available Not Available ciprofloxac in 500 mg tablet TAKE 1 TABLET BY MOUTH TWICE A DAY active Not Available Not Available No t Available sulfamethox azole 800 mg-trimetho prim 160 mg tablet TAKE 1 TABLET BY MOUTH EVERY 12 HOURS FOR 3 DAYS 07/13 completed Not Available Not Available Not Available aspirin 81 mg tablet,rios yed release Take 1 tablet every day by oral route. 07/11 completed Not Available Not Available Not Available tramadol 50 mg tablet 12/18 completed Not Available Not Available Not Available acetaminoph en 500 mg tablet 05/26 completed Not Available Not Available Not Available triamcinolo ne acetonide 0.1 % topical cream APPLY DAILY TO AFFECTED AREA ON LEG FOR 2 WEEKS 08/24 completed Not Available Not Available Not Available ketorolac 10 mg tablet 08/28 completed Not Available Not Available Not Available oxycodone-a cetaminophe n 5 mg-325 mg tablet 12/18 completed Not Available Not Available Not Available terbinafine HCl 250 mg tablet TAKE 1 TABLET BY MOUTH ONCE DAILY. 05/26 completed Not Available Not Available Not Available aspirin 325 mg tablet,rios yed release 08/28 completed Not Available Not Available Not Available tamsulosin 0.4 mg capsule 08/28 completed Not Available Not Available Not Available prednisone 1 mg tablet 12/18 completed Not Available Not Available Not Available Kenalog 10 mg/mL suspension for injection In office injection administe red by the provider 04/03 completed [facility]: 0003- 0494- 20 Not Available Not Available Not Available potassium citrate ER 10 mEq (1,080 mg) tablet,exte nded release 07/25 completed Not Available Not Available Not Available bisacodyl 10 mg rectal suppository USE DIRECTED 08/24 completed Not Available Not Available Not Available cephalexin 500 mg capsule 06/11 completed Not Available Not Available Not Available pantoprazol e 40 mg tablet,rios yed release TAKE 1 TABLET BY MOUTH EVERY DAY active Not Available Not Available No t Available Valtrex 1 gram tablet Take 1 tablet 3 times a day by oral route for 7 days. 04/18 completed Not Available Not Available Not Available diclofenac sodium 75 mg tablet,rios yed release TAKE 1 TABLET BY MOUTH TWICE A DAY 05/14 completed Not Available Not Available Not Available mupirocin 2 % topical ointment Apply as directed in both nostrils twice daily for 5 days prior to surgery- start using 04-25-21 active Not Available Not Available No t Available diclofenac sodium 50 mg tablet,rios yed release TAKE 1 TABLET BY MOUTH TWICE A DAY NEEDED FOR 7 DAYS 07/13 completed Not Available Not Available Not Available ibuprofen 600 mg tablet 11/25 completed Not Available Not Available Not Available ketoconazol e 2 % topical cream APPLY TO AFFECTED AREA TWICE A DAY FOR 2-4 WEEKS 07/13 completed Not Available Not Available Not Available ondansetron 4 mg disintegrat ing tablet 08/28 completed Not Available Not Available Not Available Hibiclens 4 % topical liquid Perform daily total-bod y wash for 5 days prior to surgery - start using 04-25-21 active Not Available Not Available No t Available naproxen 500 mg tablet TK 1 T PO BID WITH FOOD 08/21 completed Not Available Not Available Not Available amoxicillin 875 mg-potassiu m clavulanate 125 mg tablet Take 1 tablet twice a day by oral route for 7 days. 11/25 completed Not Available Not Available Not Available oxycodone 5 mg tablet take 1 or 2 tablets PO Q 4hr prn pain active Not Available Not Available No t Available chlorhexidi ne gluconate 0.12 % mouthwash 11/25 completed Not Available Not Available Not Available Aleve 05/26 completed Not Available Not Available Not Available biotin 06/11 completed Not Available Not Available Not Available Vitamin D 06/11 completed Not Available Not Available Not Available ginkgo biloba 05/26 completed Not Available Not Available Not Available lidocaine (PF) 10 mg/mL (1 %) injection solution In office injection administe red by the provider 04/03 completed [facility]: [id number]- [id number]- [id number] Not Available Not Available Not Available Gavilyte-C 240 gram-22.72 gram-6.72 gram-5.84 gram oral solution 11/25 completed Not Available Not Available Not Available Senexon-S 8.6 mg-50 mg tablet 06/11 completed Not Available Not Available Not Available Vitamin D2 05/08 completed Not Available Not Available Not Available Eliquis 2.5 mg tablet Take 1 tablet twice a day by oral route. active Not Available Not Available No t Available Fluvirin 5784-0627 45 mcg (15 mcg x 3)/0.5 mL intramuscul ar suspension 10/17 completed Not Available Not Available Not Available Pennsaid 20 mg/gram/act uation (2 %) topical soln in metered-dos e pump 08/21 completed Not Available Not Available Not Available Fluarix Quad (PF) 60 mcg (15 mcg x 4)/0.5 mL IM syringe active Not Available Not Available N ot Available turmeric 450 mg-turmeric root extract 50 mg capsule Take by oral route. 08/24 completed Not Available Not Available Not Available Fluarix Quad (PF) 60 mcg (15 mcg x 4)/0.5 mL IM syringe TO BE ADMINISTE RED BY PHARMACIS T FOR IMMUNIZAT ION active Not Available Not Available No t Available Fluzone Quad (PF) 60 mcg(15 mcgx4)/0.5 mL intramuscul ar syringe TO BE ADMINISTE RED BY PHARMACIS T FOR IMMUNIZAT ION active Not Available Not Available No t Available turmeric 06/11 completed Not Available Not Available Not Available Fluzone Quad (PF) 60 mcg (15 mcg x 4)/0.5 mL IM syringe active Not Available Not Available N ot Available Fluzone Quad (PF) 60 mcg (15 mcg x 4)/0.5 mL IM syringe PHARMACY ADMINISTE RED 12/03 completed Not Available Not Available Not Available Vitals Date Recorded Body mass index (BMI) Body height Heart rate Body temperature Body weight Systolic blood pressure Diastolic blood pressure Provider Name and Address Organization Details Last Updated DateTime 2 34.2 kg/m2 172.72 cm 78 /min 98.8 [degF] 385938. 28 g 138 mm[Hg] 62 mm[Hg] Not Available [facility] 3 01:25:15 Date Recorded Body mass index (BMI) Body height Heart rate Body temperature Body weight Systolic blood pressure Diastolic blood pressure Provider Name and Address Organization Details Last Updated DateTime 2 34.4 kg/m2 172.72 cm 62 /min 98.4 [degF] 273723. 88 g 126 mm[Hg] 80 mm[Hg] Not Available [facility] 3 01:25:15 Date Recorded Body mass index (BMI) Body height Heart rate Body temperature Body weight Systolic blood pressure Diastolic blood pressure Provider Name and Address Organization Details Last Updated DateTime 3 35.1 kg/m2 172.72 cm 72 /min 98 [degF] 082008. 84 g 116 mm[Hg] 80 mm[Hg] Not Available [facility] 3 01:25:15 Date Recorded Body height Provider Name an d Address Organization Details Last Updated DateTime 12/10/2021 172.72 cm Not Available [facility] 3 01:25:18 Date Recorded Body height Body mass index (BMI) Body weight Body temperature Heart rate Systolic blood pressure Diastolic blood pressure Provider Name and Address Organization Details Last Updated DateTime 3 172.72 cm 33.3 kg/m2 61348.7 3 g 98.5 [degF] 65 /min 138 mm[Hg] 82 mm[Hg] LIZETH Fortune [place] - [facility] 3 15:22:34 Social History Question Answer Notes LastModified by Organization Details LastModified Time Tobacco Smoking Status Never Smoker Not Available [facility] 01/06/2023 01:12:10 Do You Have An Advance Directive? Yes MIGRATION.0301 [id number] Information not available 01/06/2023 What Is Your Level Of Alcohol Consumption? Moderate MIGRATION.0301 [id number] Information not available 01/06/2023 Do You Wear A Helmet When Biking? No Does Not Bike MIGRATION.0301 [id number] Information not available 01/06/2023 What Is Your Level Of Caffeine Consumption? None MIGRATION.0301 [id number] Information not available 01/06/2023 How Much Tobacco Do You Chew? None MIGRATION.0301 [id number] Information not available 01/06/2023 In The 14 Days Before Symptom Onset, Have You Had Close Contact With A Laboratory-confi rmed COVID-19 While That Case Was Ill? No MIGRATION.030 [id number] Information not available 01/06/2023 In The 14 Days Before Symptom Onset, Have You Had Close Contact With A Person Who Is Under Investigation For COVID-19 While That Person Was Ill? No MIGRATION.0301 [id number] Information not available 01/06/2023 What Type Of Diet Are You Following? REGULAR MIGRATION.0301 [id number] Information not available 01/06/2023 Which Illicit Or Recreational Drugs Have You Used? None MIGRATION.0301 [id number] Information not available 01/06/2023 Do You Or Have You Ever Used E-cigarettes Or Vape? Never Used Electronic Cigarettes MIGRATION.0301 [id number] Information not available 01/06/2023 What Is The Highest Grade Or Level Of School You Have Completed Or The Highest Degree You Have Received? WC48084-6 MIGRATION.0301 [id number] Information not available 01/06/2023 What Is Your Occupation? [employer] MIGRATION.030 [id number] Information not available 01/06/2023 Have There Been Any Changes To Your Family Or Social Situation? No MIGRATION.0301 332366 Information not available 01/06/2023 What Is The Fluoride Status Of Your Home? Unknown MIGRATION.0301 201415 Information not available 01/06/2023 Are There Any Guns Present In Your Home? No MIGRATION.0301 107990 Information not available 01/06/2023 Do You Use Insect Repellent Routinely? No MIGRATION.0301 [id number] Information not available 01/06/2023 Where Do You Live? [facility] MIGRATION.0301 530239 Information not available 01/06/2023 Do You Have A Medical Power Of Curriculum Assistant Principal? Yes MIGRATION.0301 236257 Information not available 01/06/2023 What Was The Date Of Your Most Recent Tobacco Screening? 07/13/2023 [email or web address] Information not available 07/13/2023 Have You Ever Been Counseled For Unhealthy Alcohol Use? No MIGRATION.0301 [id number] Information not available 01/06/2023 Do You Have Any Pets? No MIGRATION.0301 855641 Information not available 01/06/2023 What Is Your Relationship Status? Single MIGRATION.0301 [id number] Information not available 01/06/2023 Do You Use Your Seat Belt Or Car Seat Routinely? Yes MIGRATION.0301 [id number] Information not available 01/06/2023 Do You Have Smoke And Carbon Monoxide Detectors In Your Home? Yes MIGRATION.0301 [id number] Information not available 01/06/2023 Are You Passively Exposed To Smoke? No MIGRATION.0301 150368 Information not available 01/06/2023 Do You Or Have You Ever Used Smokeless Tobacco? Never Used Smokeless Tobacco MIGRATION.0301 [id number] Information not available 01/06/2023 Are There Any Smokers In Your House? No MIGRATION.0301 752376 Information not available 01/06/2023 How Much Tobacco Do You Smoke? No MIGRATION.0301 [id number] Information not available 01/06/2023 What Types Of Sporting Activities Do You Participate In? None MIGRATION.0301 271689 Information not available 01/06/2023 Do You Feel Stressed (tense, Restless, Nervous, Or Anxious, Or Unable To Sleep At Night)? [id number] MIGRATION.0301 962255 Information not available 01/06/2023 Do You Use Any Illicit Or Recreational Drugs? No MIGRATION.0301 614213 Information not available 01/06/2023 Do You Use Sunscreen Routinely? Yes MIGRATION.0301 [id number] Information not available 01/06/2023 Has Tobacco Cessation Counseling Been Provided? No Not Needed-ne fawad Smoked MIGRATION.0301 [id number] Information not available 01/06/2023 How Many Years Have You Smoked Tobacco? 0 MIGRATION.0301 044641 Information not available 01/06/2023 Have You Recently Traveled Abroad? No MIGRATION.0301 573925 Information not available 01/06/2023 Do You Have Any Dietary Restrictions? No MIGRATION.[id number] Information not available 01/06/2023 Do You Or Have You Ever Used Any Other Forms Of Tobacco Or Nicotine? No MIGRATION.[id number] Information not available 01/06/2023 Sex: Male Functional Status Question Answer Note LastModified by Organizat ion Details LastModified Time What is your exercise level? Moderate [id number] Information not available 01/06/2023 Mental Status None recorded. Family History Relationship Description Onset Age of this Age Resolved Age Notes LastModified by Organization Details LastModified Time Father Aneurysm MIGRATION.768 [id number] Not available 01/06/2023 01:18:30 Sister Diabetes mellitus MIGRATION.746 [id number] Not available 01/06/2023 01:18:30 Brother Hypertensive disorder MIGRATION.666 [id number] Not available 01/06/2023 01:18:30 Medical History Condition Response NERVE DISEASE N BLINDNESS N RHEUMATIC FEVER N KIDNEY STONES N BLADDER PROBLEMS N OTHER # 1 N POLIO N LUNG DISEASE/DISORDER N RADIATION / CHEMOTHERAPY N COPD N Other # 2 N BLOOD DISEASES N SURGERY N EAR OR HEARING PROBLEMS N MUMPS N BOWEL PROBLEMS N DEPRESSION (INCLUDING POST ) N STROKE/TIA N ULCERS N BENIGN PROSTATIC HYPERPLASIA N MEASLES N MYOCARDIAL INFARCTION N OBESITY N GERD/NAUSEA Y ANEURYSM N URINARY/BLADDER/KIDNEY PROBLEMS N INPATIENT PSYCH CARE N CORONARY ARTERY DISEASE (CAD) N ADDICTION CONCERNS N Impotence N ENDOMETRIOSIS N USE OF BLOOD THINNERS N SKIN PROBLEMS N GASTROINTESTINAL DISORDER N PERIPHERAL VASCULAR DISEASE N MUSCLE,JOINT OR BONE PROBLEMS N GASTROINTESTINAL BLEEDING N BLOOD CLOTS N ASTHMA N CATARACTS N ERECTILE DYSFUNCTION N VARICOSITIES N GI PROBLEMS N Low Testosterone N INFERTILITY N AIDS/HIV N LIVER DISEASE N MALE HYPOGONADISM N HYPERTENSION Y Deficiency N ANXIETY DISORDER N BLOOD TRANSFUSION N ANEMIA/BLOOD DISORDER N CHRONIC EAR INFECTIONS N BRONCHITIS N TUBERCULOSIS N GLAUCOMA N DIVERTICULITIS N SLEEP APNEA N CHICKENPOX N INFECTIOUS DISEASE N PROSTATE N HEART ARRHYTHMIA N INSOMNIA N HIGH CHOLESTEROL / HYPERLIPIDEMIA Y EYE PROBLEMS N HYPERTHYROIDISM N NEUROLOGICAL PROBLEMS N EDEMA N CHRONIC PAIN SYNDROME N HYPOTHYROIDISM N CONSTIPATION N CAROTID BLOCKAGE N BACK / NECK PROBLEMS N HAVE YOU BEEN HOSPITALIZED OR SEEN IN [facility] IN THE PAST YEAR ? N ATHEROSCLEROSIS N BREAST PROBLEMS N DIALYSIS N ECZEMA N OSTEOPOROSIS N ARTHRITIS Y NO SIGNIFICANT PAST MEDICAL HISTORY N APPENDICITIS N DIABETES, TYPE N BAD TEETH N ENT N HEARTBURN / REFLUX N AUTISM SPECTRUM DISORDER (ASD) N HEPATITIS / LIVER DISEASE N PULMONARY DISEASE N GOUT N SLEEP DISORDER N ALZHEIMER'S DISEASE N Brain Problems N DEMENTIA N HERPES N SEIZURES/EPILEPSY N HEADACHES/MIGRAINES N VASCULAR DISEASE N PACEMAKER N Blood Disorder N DIZZINESS N HEART DISEASE/HEART PROBLEMS N KIDNEY DISEASE N MULTIPLE SCLEROSIS N CANCER: SPECIFY N CARDIAC ARRHYTHMIA N ANESTHESIA COMPLICATIONS N ATRIAL FIBRILLATION N Gall Stones N PULMONARY EMBOLISM N AUTOIMMUNE DISEASE N Immunizations Vaccine Type Date Status Note Provider Nam e and Address Organization Details Recorded Time influenza, unspecified formulation 3 completed Not Available [facility] 08[facility]13[facility]2023 04:18:10 COVID-19, mRNA, LNP-S, PF, 30 mcg/0.3 mL dose 1 completed Not Available [facility] 08/13/2023 04:18:10 COVID-19, mRNA, LNP-S, PF, 30 mcg/0.3 mL dose 1 completed Not Available [facility] 08/13/2023 04:18:10 Influenza, split virus, quadrivalent, preservative 0 completed Not Available [facility] 08/13/2023 04:18:10 Influenza, split virus, quadrivalent, preservative 9 completed Not Available [facility] 08/13/2023 04:18:10 Influenza, split virus, quadrivalent, preservative 8 completed Not Available [facility] 08/13/2023 04:18:10 Influenza, split virus, quadrivalent, preservative 7 completed Not Available [facility] 08/13/2023 04:18:10 Influenza, split virus, quadrivalent, preservative 6 completed Not Available [facility] 08/13/2023 04:18:10 Influenza, split virus, trivalent, preservative 2 completed Not Available [facility] 08/13/2023 04:18:10 COVID-19, mRNA, LNP-S, PF, 30 mcg/0.3 mL dose 1 completed Not Available [facility] 08/13/2023 04:18:10 Influenza, split virus, quadrivalent, PF 10/14/201 5 completed Not Available [facility] 08/13/2023 04:18:10 Past Encounters Encounter ID Performer Location Encounter Start Date Encounter Closed Date Diagnosis/Indication Diagnosis SNOMED-CT Code Diagnosis ICD10 Code Diagnosis Note [id number] [facility] [address] [place] [address] [address] [address] 01/07/2021 00:00:00 01/25/2021 20:56:41 [id number] [facility] [place] [address] [place] [address] 01/31/2021 00:00:00 02/01/2021 19:02:59 [id number] [facility] [place] [address] [place] [address] 02/26/2021 00:00:00 02/26/2021 09:04:12 [id number] [facility] [address] [address] 04/03/2021 00:00:00 04/07/2021 22:02:13 [id number] [facility] [place] [address] [place] [address] 05/14/2021 00:00:00 05/14/2021 18:32:58 [id number] [facility] [place] [address] [place] [address] 05/26/2021 00:00:00 05/26/2021 17:44:32 [id number] [facility] [place] [address] [place] [address] 06/11/2021 00:00:00 06/11/2021 17:46:44 [id number] [facility] [place] [address] [place] [address] 06/26/2021 00:00:00 06/29/2021 21:41:11 [id number] [facility] [place] [address] [place] [address] 07/11/2021 00:00:00 07/11/2021 12:58:13 [id number] [facility] [address] [place] [address] Ave[address] [address] 07/25/2021 00:00:00 07/25/2021 22:25:29 [id number] [facility] [address] [place], [place] [address]e., [address] [address] 12/10/2021 00:00:00 01/04/2022 20:53:54 [id number] [facility] [address] [facility] [place] [address] 01/13/2022 00:00:00 01/13/2022 21:27:28 [id number] [facility] [address] [place], [place] [address]e., [address] [address] 04/02/2022 00:00:00 04/02/2022 21:08:53 [id number] [facility] [address] [place], [place] [address]e., [address] [address] 12/03/2022 00:00:00 12/12/2022 21:01:20 [id number] Dez Morales MD [facility] [address] [place], [place] [address]e., [address] [address] 07/13/2023 15:00:46 07/13/2023 15:58:58 Essential hypertension 12081021 I10 Screening for malignant neoplasm of prostate 321632172 Z12.5 Gastroesop hageal reflux disease without esophagitis 387592031 K21.9 Dyslipidemia 156160544 E 78.5 Jimmy hematuria 38014754 5 R31.0 Health Concerns Section Related Observation LastModified by Organization Detai ls LastModified Time None Recorded Concern Status LastModified by Organization Details LastModified Time None Recorded Advance Directives Directive Y: Payers Encounter Date Sequence Insurance Name Policy Number Policy Thomas Covered Member ID Thomas Member ID Guarantor Name 07/13/2023 1 [employer] [id number] Jasper Martinez [id number] Jasper Martinez Notes Date Note Type Note Provider Name and Address Organization Details Recorded Time 07/13/2023 text/html Hypertension no headache no dizziness. He has had some painless hematuria. Dyslipidemia does try to follow a low-fat diet. GERD pantoprazole working. He has an appointment see Urology in about a week Dez Morales MD [address] [place] [address], [place], [address], [facility] [employer] [facility] 07/13/2023 22:29:03
== END 2025-01-01 06:32 | disposition home or self-care (01) ==
PROVIDERS: PCP Internal Medicine; Visit Provider Urology
DX: R14.0 Abdominal distension (gaseous) (principal); N20.0 Calculus of kidney
CPT/HCPCS: 74018; 74176